=== PATIENT | male | born 1960 | race Caucasian/White ===

== ENCOUNTER → 2017-11-20 12:18 | Outpatient (CLI) | payer OTHER, SELFPAY ==
[2017-11-20 18:34] LABS: Pathologist Comment May follow
[2017-11-20 18:46] LABS: AUTO B FLUID DILUENT BKGD CT WBC <0.1 RBC <0.01 (W<.1,R<.01); Color / Synovial Fluid Yellow (Pale Yellow); Source / Synovial Fluid R KNEE; Source- Body Fluid SYNOVIAL; Viscosity / Synovial Fluid Sl. Viscous (HIGH)
[2017-11-20 18:47] LABS: Synovial Fld Mononuclear WBC # 0.156 10^3/ul; Synovial Fld Mononuclear WBC % 78.8 %; Synovial Fld Polynuclear WBC # 0.042 10^3/ul; Synovial Fld Polynuclear WBC % 21.2 %
[2017-11-20 18:48] LABS: Appearance /Synovial Fluid Clear (CLEAR)
[2017-11-20 19:04] LABS: RBC /Synovial Fluid 63 /mm3 (0)
[2017-11-20 19:24] LABS: Body Fluid QC Type(s) BF1Q,BF2Q
[2017-11-20 20:53] LABS: Lymph 34 %; Monocyte /Synovial Fluid 64 %; Neutrophil 2 % (0-25)
[2017-11-22 10:47] LABS: Pathologist Review Reviewed
== END ==
PROVIDERS: Family Provider Family Medicine; PCP Family Medicine; Visit Provider Orthopaedic Surgery
DX: S83.231D Complex tear of medial meniscus, current injury, right knee, subsequent encounter (principal); X58.XXXD Exposure to other specified factors, subsequent encounter; M25.461 Effusion, right knee
CPT/HCPCS: 87070; 87075; 87205; 89050; 89051; 89060

== ENCOUNTER 2018-03-09 14:11 | Emergency (ER) | payer OTHER, SELFPAY ==
[2018-03-09 14:11] VITALS: BP 153/77; PULSE 102; RESP 18; TEMP 36.6; O2SAT 99; BMI 44.7
--- NOTE | 2018-03-09 15:06 | ED.VISSUMM ---
- ER Visit Summary Date of Service: 03/09/18 Chief Complaint: Back pain History of Present Illness: The patient is a 57 M presenting with low back pain that has worsened over the past 2 weeks. Patient has had back problems since June. He has pain in his right low back radiating to his right leg. He has a tingling sensation in his right thigh. He was seen by his primary care physician 1 week ago. He states he manipulated his back and this did not improve his symptoms. He is taking Tylenol and Celebrex at home. He states he has tried tramadol in the past and this has not helped his pain. He denies weakness. Denies bowel or bladder incontinence. He is able to ambulate. Denies direct trauma. He states the pain worsened when he went back to work 2 weeks ago and does a lot of heavy lifting and repetitive motions. Physical Examination: Vitals are stable. Patient is afebrile. Alert no acute distress. HEENT exam is unremarkable. Neck is supple. Lungs are clear and equal bilaterally. Heart is regular rate and rhythm. Abdomen is soft nontender nondistended. Back: Right lumbar paraspinal muscle tenderness, no midline tenderness. Straight leg raise positive at 30? on the right Extremities are unremarkable. Skin is warm and dry. No focal neurologic deficit. Normal strength and sensation Remainder of exam is unremarkable. Emergency Department Course and Treatment: Patient is given Toradol, Norflex IM. He is given a prescription for Flexeril. He is advised to continue anti-inflammatories. Advised to follow-up with his primary care physician. Advised return to ED if worsening complaints. Disposition: Discharge home Impression: Acute on chronic back pain This note was generated with [employer] dictation software. It may contain incorrect words, spelling, and punctuation that were not noted in review of the chart prior to signing ED Disposition - Plan for ED Patient: Chief Complaint: Back Instructions: ED Sciatica Prescriptions: Cyclobenzaprine [Flexeril] 10 mg PO TID PRN #20 tablet PRN Reason: Muscle Spasm Referrals: Javier Fletcher DO [Primary Care Provider] -
--- NOTE | 2018-03-09 15:11 | ED.DCSUM_ITS ---
- ER Visit Summary Date of Service: 03/09/18 Chief Complaint: Back pain History of Present Illness: The patient is a 57 M presenting with low back pain that has worsened over the past 2 weeks. Patient has had back problems since June. He has pain in his right low back radiating to his right leg. He has a tingling sensation in his right thigh. He was seen by his primary care physician 1 week ago. He states he manipulated his back and this did not improve his symptoms. He is taking Tylenol and Celebrex at home. He states he has tried tramadol in the past and this has not helped his pain. He denies weakness. Denies bowel or bladder incontinence. He is able to ambulate. Denies direct trauma. He states the pain worsened when he went back to work 2 weeks ago and does a lot of heavy lifting and repetitive motions. Physical Examination: Vitals are stable. Patient is afebrile. Alert no acute distress. HEENT exam is unremarkable. Neck is supple. Lungs are clear and equal bilaterally. Heart is regular rate and rhythm. Abdomen is soft nontender nondistended. Back: Right lumbar paraspinal muscle tenderness, no midline tenderness. Straight leg raise positive at 30? on the right Extremities are unremarkable. Skin is warm and dry. No focal neurologic deficit. Normal strength and sensation Remainder of exam is unremarkable. Emergency Department Course and Treatment: Patient is given Toradol, Norflex IM. He is given a prescription for Flexeril. He is advised to continue anti- inflammatories. Advised to follow-up with his primary care physician. Advised return to ED if worsening complaints. Disposition: Discharge home Impression: Acute on chronic back pain This note was generated with [employer] dictation software. It may contain incorrect words, spelling, and punctuation that were not noted in review of the chart prior to signing ED Disposition - Plan for ED Patient: Chief Complaint: Back Instructions: ED Sciatica Prescriptions: Cyclobenzaprine [Flexeril] 10 mg PO TID PRN #20 tablet PRN Reason: Muscle Spasm Referrals: Javier Fletcher DO [Primary Care Provider] -
[2018-03-09] MEDS: Orphenadrine 60 MG/2 ML Ampul IM (15:14)
[2018-03-09] MEDS: Ketorolac 60 MG/2 ML Vial IM (15:14)
[2018-03-09 15:43] VITALS: BP 140/78; PULSE 76; RESP 18; O2SAT 98
== END 2018-03-09 15:45 | disposition home or self-care (01) ==
LOC: ED 15:20
PROVIDERS: Emergency Provider Emergency Medicine; Family Provider Family Medicine; PCP Family Medicine
DX: M54.9 Dorsalgia, unspecified (principal); G89.29 Other chronic pain; R20.2 Paresthesia of skin; K21.9 Gastro-esophageal reflux disease without esophagitis; I10 Essential (primary) hypertension; Z79.899 Other long term (current) drug therapy
CPT/HCPCS: 96372; 99282

== ENCOUNTER → 2019-05-08 | Outpatient (CLI) | payer OTHER, SELFPAY ==
[2019-05-08 09:56] LABS: Anion Gap 7 (5-15); BUN 27 mg/dL (7-18); BUN/Creat Ratio 27.4 RATIO (10-20); Calcium,Total 8.5 mg/dL (8.5-10.1); Chloride 110 mmol/L (98-107); Creatinine, Serum 0.99 mg/dL (0.70-1.30); EST Glomerular Filtration Rate 82 mL/min (>60); Est Glom Filt Rate - Afr Amer 99 mL/min (>60); Glucose 102 mg/dL (74-106); Potassium 4.2 mmol/L (3.5-5.1); Sodium Level 143 mmol/L (136-145)
== END | disposition home or self-care (01) ==
LOC: LAB 08:58
PROVIDERS: Family Provider Family Medicine; PCP Family Medicine; Referring Provider Family Medicine; Visit Provider Family Medicine
DX: I10 Essential (primary) hypertension (principal); R60.0 Localized edema
CPT/HCPCS: 36415; 80048

== ENCOUNTER → 2020-02-19 12:32 | Outpatient (CLI) | payer MEDICARE, SELFPAY ==
--- NOTE | 2020-02-19 12:44 | ECHOCS_ITS ---
Reason For Study: Exertional Dyspnea Procedure This was a 2D Doppler, Color Flow transthoracic echocardiogram. Technically difficult study due to patients body habitus. Contrast injection performed to enhance image quality. Exam performed in department. Left Ventricle Normal LV size. The estimated ejection fraction is 60 %. No evidence for diastolic dysfunction. No regional wall motion abnormalities noted. Right Ventricle Normal RV size. Normal systolic function. Atria Normal left atrium. Normal right atrium. No doppler evidence for ASD. Mitral Valve There is no mitral valve stenosis. No mitral valve insufficiency. Tricuspid Valve There is no tricuspid stenosis. Trivial tricuspid valve insufficiency. Pulmonary artery systolic pressure is 40 mmHg. Aortic Valve There is no aortic stenosis. No aortic valve insufficiency. Pulmonic Valve There is no pulmonic valvular stenosis. No pulmonic valve insufficiency. Great Vessels Normal aortic root. Pericardium/Pleural No pericardial effusion. Medication 22 gauge I.V. with prn adaptor inserted into right arm. Diluted definity 4ml given slow IV push to enhance endocardial definition. MMode/2D Measurements & Calculations LVIDd: 5.3 cm IVSd: 1.2 cm LA dimension: 4.1 cm LVIDs: 3.1 cm LVPWd: 1.2 cm FS: 40.5 % LAV(MOD-bp): 58.6 ml LA A4 area: 22.8 cm2 LAV(MOD-bp) Indexed: 21.0 ml/m2 LAV(MOD-sp2): 42.2 ml LAV(MOD-sp4): 66.6 ml Time Measurements MV dec time: 0.24 sec Doppler Measurements & Calculations MV E max kenneth: 99.4 cm/sec Lat Peak E' Kenneth: 11.4 cm/sec Med Peak E' Kenneth: 10.8 cm/sec MV A max kenneth: 77.5 cm/sec E/E' lat: 8.7 E/E' med: 9.2 MV E/A: 1.3 MV V2 max: 111.7 cm/sec MV P1/2t max kenneth: 114.6 cm/sec Ao V2 max: 163.1 cm/sec MV max P.0 mmHg MV P1/2t: 113.9 msec Ao max P.6 mmHg MV V2 mean: 61.2 cm/sec MV dec slope: 294.7 cm/sec2 MV mean P.7 mmHg MV V2 VTI: 38.3 cm MVA(P1/2t): 1.9 cm2 LV V1 max: 133.4 cm/sec PA V2 max: 123.3 cm/sec TR max kenneth: 300.0 cm/sec LV V1 max P.1 mmHg TR max P.0 mmHg Interpretation Summary The estimated ejection fraction is 60 %. No evidence for diastolic dysfunction. The study was technically difficult. Contrast injection was performed. Ordering Physician: Sixto Schulz Referring Physician: Sixto Schulz Performed By: Shakeel Jeffries RCS
== END ==
PROVIDERS: PCP Student in an Organized Health Care Education/Training Program; Referring Provider Student in an Organized Health Care Education/Training Program; Visit Provider Student in an Organized Health Care Education/Training Program
DX: R06.09 Other forms of dyspnea (principal)
CPT/HCPCS: 93306; Q9957; A4216; C8929

== ENCOUNTER → 2020-02-25 17:37 | Outpatient (CLI) | payer MEDICARE, SELFPAY ==
[2020-02-25 18:12] LABS: Amphetamine Urine VISTA NEGATIVE (<1000 ng/mL); Barbiturate Urine VISTA NEGATIVE (< 200 ng/mL); Benzodiazepine Urine VISTA NEGATIVE (< 200 ng/mL); Cocaine Urine VISTA NEGATIVE (< 300 ng/mL); Ecstacy Urine VISTA POSITIVE (< 500 ng/mL); Methadone Urine VISTA NEGATIVE (< 300 ng/mL); PCP Urine VISTA NEGATIVE (< 25 ng/mL); THC Urine VISTA NEGATIVE (< 50 ng/mL); Vista UDS pH Range 6
== END ==
PROVIDERS: PCP Student in an Organized Health Care Education/Training Program; Referring Provider Anesthesiology Pain Medicine; Visit Provider Anesthesiology Pain Medicine
DX: F11.20 Opioid dependence, uncomplicated (principal)
CPT/HCPCS: 80307

== ENCOUNTER 2020-02-27 02:35 | Observation (INO) | payer MEDICARE, SELFPAY ==
[2020-02-27] VITALS (12 sets, daily range): BP systolic 110–159; BP diastolic 67–105; PULSE 69–106; RESP 15–20; TEMP 36.4–37.7; O2SAT 93–99; BMI 50.8; BMI 50.0; BMI 50.1
--- NOTE | 2020-02-27 02:47 | EKG12_ITS ---
Test Reason : DYSRHYTHMIA Blood Pressure : / mmHG Vent. Rate : 096 BPM Atrial Rate : 096 BPM P-R Int : 168 ms QRS Dur : 076 ms QT Int : 346 ms P-R-T Axes : 058 -19 032 degrees QTc Int : 437 ms Normal sinus rhythm Low voltage QRS Inferior infarct , age undetermined Abnormal ECG Confirmed by FELTON MCCABE, SHARAD ([id number]), telegraph editor JEYSON BEGUM ([id number]) on 03/01/2020 9:22:14 AM Referred By: SILVINO Confirmed By:SHARAD YA MD
--- NOTE | 2020-02-27 02:49 | ED.DCSUM_ITS ---
History of Present Illness Chief Complaint: General Illness Detail of Chief Complaint: Chest pain, shortness of breath, chills Informant: Patient Onset: Today Current Severity: Moderate Maximum Severity: Moderate Narrative: Patient presents with chills and generalized weakness that started about 3 hours ago. He does report some shortness of breath. No significant cough. He also complains of sharp left-sided chest pain that he also feels around the left scapula. He states last evening he felt his normal self. He has not noted fever at home. - Past Medical History (1) GERD (gastroesophageal reflux disease) Status: Chronic (2) Hypertension Status: Chronic Past Medical History - Allergies and Home Meds Allergies/Adverse Reactions: Allergies esomeprazole magnesium [From Nexium] Adverse Reaction (Verified 02/27/20 02:49) Upset Stomach Primary Care Physician: Sixto Schulz DO [Primary Care Provider] - Prior records reviewed: Yes Smoking Status: Never smoker Review of Systems General: Reports: Chills. Denies: Fever Eyes: Denies: Visual changes - bilaterally ENT: Denies: Bilateral ear pain Cardiovascular: Reports: Chest pain Respiratory: Reports: Dyspnea. Denies: Cough, Sputum Gastrointestinal: Denies: Abdominal pain, Nausea, Vomiting, Diarrhea Musculoskeletal: Denies: Swelling, Extremity Pain Skin: Denies: Rash Neurological: Reports: Weakness Hematologic: Denies: Easy bruising, Easy bleeding Allergy: Denies: Uticaria Physical Exam Vital Signs/Narrative: Vital Signs Temp Pulse Resp BP Pulse Ox 02/27/20 02:38 100 F H 87 20 H 159/84 H 98 Inital Vital Signs reviewed: Yes General: Well nourished, Well developed Head: Normocephalic ENT: Moist mucous membranes Neck: Supple Cardiovascular: Regular rate, Regular rhythm Respiratory: No distress, CTA bilaterally Abdomen: Soft, Nontender, Hypoactive bowel sounds Extremities: Nontender Skin: Normal color Neurological: Alert, Oriented x3, - - No focal neurologic deficits. Psychological: Normal affect Diagnostic/Tx/Re-eval Impressions Chest X-Ray 02/27/20 03:52 IMPRESSION: Borderline cardiomegaly. Electronically Signed: Ivania Franco MD at 4:57 EDT , Service support , 02/27/20 03:52 Chest 1 View (Portable) [RAD] Stat 02/27/20 05:49 CTA Chest W/WO Contrast [CT] Stat No CTA demonstrated pulmonary embolism or arterial dissection. Laboratory Results 02/27/20 02/27/20 02/27/20 02:50 02:50 02:50 WBC 10.2 RBC 5.06 Hgb 14.3 Hct 45.7 MCV 90.3 MCH 28.3 MCHC 31.3 L RDW Std Deviation 47.6 H RDW Coeff of Nella 14.5 Plt Count 189 MPV 10.8 Immature Gran % (Auto) 1.300 H Neut % (Auto) 78.3 H Lymph % (Auto) 14.9 L [place] % (Auto) 3.7 Eos % (Auto) 1.2 Baso % (Auto) 0.6 Absolute Neuts (auto) 8.0 H Absolute Lymphs (auto) 1.52 Nucleated RBC % 0 Differential Comment SCANNED D-Dimer Quant (PE/DVT) Cancelled Sodium Cancelled Potassium Cancelled Chloride Cancelled Carbon Dioxide Cancelled Anion Gap Cancelled BUN Cancelled Creatinine Cancelled Estim Creat Clear Calc Cancelled Est GFR (MDRD) Af Amer Cancelled Est GFR (MDRD) Non-Af Cancelled BUN/Creatinine Ratio Cancelled Glucose Cancelled Calcium Cancelled Troponin I Cancelled Urine Color Urine Clarity Urine pH Ur Specific [place] Urine Protein Urine Glucose (UA) Urine Ketones Urine Occult Blood Urine Nitrite Urine Bilirubin Urine Urobilinogen Ur Leukocyte Esterase Urine RBC Urine WBC Ur Squamous Epith Cells Urine Bacteria Urine Mucus COVID-19 (RANGEL) 02/27/20 02/27/20 02/27/20 03:00 03:15 04:50 WBC RBC Hgb Hct MCV MCH MCHC RDW Std Deviation RDW Coeff of Nella Plt Count MPV Immature Gran % (Auto) Neut % (Auto) Lymph % (Auto) [place] % (Auto) Eos % (Auto) Baso % (Auto) Absolute Neuts (auto) Absolute Lymphs (auto) Nucleated RBC % Differential Comment D-Dimer Quant (PE/DVT) 0.92 H* Sodium Potassium Chloride Carbon Dioxide Anion Gap BUN Creatinine Estim Creat Clear Calc Est GFR (MDRD) Af Amer Est GFR (MDRD) Non-Af BUN/Creatinine Ratio Glucose Calcium Troponin I Urine Color Yellow Urine Clarity Sl. Cloudy Urine pH 6.0 Ur Specific [place] 1.020 Urine Protein 15 H Urine Glucose (UA) Normal Urine Ketones Negative Urine Occult Blood 10 H Urine Nitrite Negative Urine Bilirubin Negative Urine Urobilinogen 1 H Ur Leukocyte Esterase Negative Urine RBC 0-5 SEEN Urine WBC 0-5 SEEN Ur Squamous Epith Cells 0 SEEN Urine Bacteria 0 SEEN Urine Mucus 0 SEEN COVID-19 (RANGEL) Not Detected 02/27/20 04:50 WBC RBC Hgb Hct MCV MCH MCHC RDW Std Deviation RDW Coeff of Nella Plt Count MPV Immature Gran % (Auto) Neut % (Auto) Lymph % (Auto) [place] % (Auto) Eos % (Auto) Baso % (Auto) Absolute Neuts (auto) Absolute Lymphs (auto) Nucleated RBC % Differential Comment D-Dimer Quant (PE/DVT) Sodium 130 L Potassium 4.6 Chloride 103 Carbon Dioxide 19.0 L Anion Gap 8 BUN 32 H Creatinine 1.07 Estim Creat Clear Calc 79.57 Est GFR (MDRD) Af Amer 90 Est GFR (MDRD) Non-Af 75 BUN/Creatinine Ratio 29.9 H Glucose 104 Calcium 8.8 Troponin I 0.163 H Urine Color Urine Clarity Urine pH Ur Specific [place] Urine Protein Urine Glucose (UA) Urine Ketones Urine Occult Blood Urine Nitrite Urine Bilirubin Urine Urobilinogen Ur Leukocyte Esterase Urine RBC Urine WBC Ur Squamous Epith Cells Urine Bacteria Urine Mucus COVID-19 (RANGEL) - EKG Initial EKG Interpretation: Sinus Rhythm - Sinus 86 with no acute ischemia. Follow-up EKG Interpretation: Sinus Rhythm - Sinus at 96 with no acute ischemia. - Medical Decision Making Patient was given Tylenol for fever on arrival. Laboratory evaluation is undertaken. Patient's d-dimer is elevated and CTA of the chest is obtained which shows no evidence of pulmonary embolism or dissection. There is no evidence of infiltrate. Patient's troponin is elevated. He is given aspirin p.o. He is discussed with hospitalist will be admitted to the floor for further work-up and evaluation. ED Disposition - Plan for ED Patient: Disposition: Acute Care Hospital [facility] Diagnosis: Chest pain, Elevated troponin Referrals: Sixto Schulz DO [Primary Care Provider] -
[2020-02-27 02:59] LABS: Absolute Lymphocyte Count 1.52 X10^3/uL (0.83-4.51); Basophil# 0.06 X10^3/uL; Basophil% 0.6 % (0-1); Eosinophil# 0.12 X10^3/uL; Eosinophils% 1.2 % (0-5); Hematocrit 45.7 % (40-54); Hemoglobin 14.3 g/dL (13.0-16.5); Lymphocyte # 1.52 X10^3/ul (4.0); Lymphocyte % 14.9 % (19-41); Mean Corp Hgb Conc 31.3 g/dL (32-36); Mean Corpuscular Hgb 28.3 pg (27.0-32.0); Mean Corpuscular Volume 90.3 fL (80-94); Mean Platelet Vol. 10.8 fl (6.2-12.0); Monocyte# 0.38 X10^3/uL; Monocyte% 3.7 % (0-10); NRBC Flagged by Analyzer 0 % (0-5); Neutrophil # 7.99 X10^3/uL (2.7-7.7); Neutrophil % 78.3 % (47-70); POSITIVE COUNT YES; Platelet Count 189 K/mm3 (150-450); RBC Distribution Width CV 14.5 % (11.6-14.6); RBC Distribution Width SD 47.6 fl (35.1-43.9); Red Blood Count 5.06 M/mm3 (4.6-6.2); White Blood Count 10.2 K/mm3 (4.4-11.0)
[2020-02-27 03:18] LABS: Differential Indicated SCAN CRITERIA MET
[2020-02-27 03:26] LABS: Bacteria 0 SEEN /hpf (None Seen); Mucous, Urine 0 SEEN /hpf (<or=2+); Squamous Epithelial Cells - UA 0 SEEN /hpf (0-5)
[2020-02-27 03:28] LABS: Color, Urine Yellow (Yellow); Glucose, Dipstick Normal (Normal); Ketone-Dipstick Negative (Negative); Leukocyte Esterase-Dipstick Negative /ul (Negative); Nitrite-Dipstick Negative (Negative); Occult Blood-Urine 10 /ul (Negative); Protein-Dipstick 15 mg/dl (Negative); Urine Bilirubin Dipstick Negative (Negative); Urine Clarity Sl. Cloudy (Clear); Urine Urobilinogen 1 mg/dl (Normal)
[2020-02-27] MEDS: 0.9% Normal Saline 1,000 ML 15 ML IV (03:39)
[2020-02-27 03:40] LABS: Red Blood Cells-Urine 0-5 SEEN /hpf (0-5); White Blood Cells 0-5 SEEN /hpf (0-5)
[2020-02-27] MEDS: Acetaminophen 500 MG Tablet 1000 MG PO (03:40)
[2020-02-27 03:45] LABS: Differential Comment SCANNED
--- NOTE | 2020-02-27 03:52 | RAD_ITS ---
STUDY: X-RAY CHEST REASON FOR EXAM: Male, 59 years old patient with chills, chest discomfort and shortness of breath. TECHNIQUE: Single AP portable view of the chest. COMPARISON: Prior comparison studies are not available for review at this time. FINDINGS: Cardiac monitoring leads are present. Patient has had previous cervical spine surgery. The lungs are clear and expanded. There is no demonstrated pleural abnormality. There is borderline cardiomegaly. Normal mediastinum and gifty. There is prominence of the pulmonary hilar arteries without peripheral pulmonary vascular congestion. Normal visualized aortic arch and descending thoracic aorta. Normal visualized thoracic spine. Normal visualized ribs, clavicles, and shoulders. There is no demonstrated abnormality of the visualized soft tissue structures of the upper abdomen. RAD/Chest 1 View (Portable) IMPRESSION: Borderline cardiomegaly. Electronically Signed: Ivania Franco MD at 4:57 EDT , Service support ,
--- NOTE | 2020-02-27 05:11 | ED.RN ---
MULTIPLE ATTEMPTS TO GET LACTIC ACID BY NURSES AND LAB. DR NOREEN TONG.
[2020-02-27 05:44] LABS: D-Dimer Quantitative (DVT/PE) 0.92 FEU/ug/m (0.27-0.49)
[2020-02-27 05:46] LABS: Anion Gap 8 (5-15); BUN 32 mg/dL (7-18); BUN/Creat Ratio 29.9 RATIO (10-20); Calcium,Total 8.8 mg/dL (8.5-10.1); Chloride 103 mmol/L (98-107); Creatinine, Serum 1.07 mg/dL (0.70-1.30); EST Glomerular Filtration Rate 75 mL/min (>60); Est Glom Filt Rate - Afr Amer 90 mL/min (>60); Estimated Creatinine Clearance 79.57 ml/min; Glucose 104 mg/dL (74-106); Potassium 4.6 mmol/L (3.5-5.1); Sodium Level 130 mmol/L (136-145)
--- NOTE | 2020-02-27 05:49 | CT_ITS ---
STUDY: CTA CHEST REASON FOR EXAM: Male, 59 years old patient with chest pain with elevated d-dimer. COVID negative RADIATION DOSAGE (If Supplied By Facility): CTDIvol = ( 18.03 ) mGy, DLP = ( 770.75 ) mGycm TECHNIQUE: The examination was performed with the intravenous administration of 100 ml of Isovue 370. Post-processing of the angiographic images was performed, with multiplanar reformation and 3D reconstruction. Individualized dose optimization techniques were used for this CT. COMPARISON: Prior comparison studies are not available for review at this time. FINDINGS: Normal enhancement of the main pulmonary artery and right and left pulmonary arteries. Normal enhancement of the bilateral peripheral pulmonary arteries. There is no demonstrated pulmonary embolism. Normal thoracic aorta and visualized great vessels. There is no demonstrated aortic dissection. Normal heart and pericardium. Normal mediastinum. Normal hilar regions. Normal visualized trachea and bronchi. The lungs are well expanded. Normal pulmonary parenchyma. Normal pleura. Normal chest wall structures. Normal osseous structures. There is small hepatic cyst measuring less than a centimeter in size. CT/CTA Chest W/WO Contrast IMPRESSION: No CTA demonstrated pulmonary embolism or arterial dissection. Electronically Signed: Ivania Franco MD at 7:27 EDT , Service support ,
[2020-02-27] MEDS: Aspirin 81 MG TAB.CHEW 324 MG PO (06:00)
--- NOTE | 2020-02-27 06:43 | EKG12_ITS ---
Test Reason : CP Blood Pressure : / mmHG Vent. Rate : 086 BPM Atrial Rate : 086 BPM P-R Int : 164 ms QRS Dur : 080 ms QT Int : 378 ms P-R-T Axes : 057 -21 052 degrees QTc Int : 452 ms Normal sinus rhythm Normal ECG Confirmed by FELTON MCCABE, SHARAD ([id number]), editorial writer JEYSON BEGUM ([id number]) on 03/01/2020 9:22:29 AM Referred By: SILVINO Confirmed By:SHARAD YA MD
--- NOTE | 2020-02-27 07:23 | NURSING ---
DR VAZQUEZ FOR DR SORTO
--- NOTE | 2020-02-27 07:28 | NURSING ---
PCU OBS TAYLOR CP, ELEVATED TROP
[2020-02-27] MEDS: Enoxaparin 40 MG/0.4 ML Syringe SC (10:51)
--- NOTE | 2020-02-27 14:23 | PCM.HP.STD ---
<Odalis Dean - Last Filed: 02/27/20 14:42> Problem List (1) GERD (gastroesophageal reflux disease) Status: Chronic (2) Hypertension Status: Chronic (3) Chest pain Status: Acute (4) Elevated troponin Status: Acute History of Present Illness Date of Admission: 02/27/20 Chief Complaint: Chest pain, dyspnea on exertion. The patient is a 59 year old M who presents to the emergency room due to chest pain and ongoing dyspnea on exertion. Patient reports he had a similar episode about a month ago and was seen at [facility] where he completed a stress test which he reports was normal. Patient states over the past few months he has had shortness of breath on exertion which resolves with rest. Last night around 1 AM he was awoken from his sleep due to chest pain and pressure with associated shortness of breath. Denies nausea, diaphoresis. He has a past medical history of hypertension, chronic back pain, GERD, KETAN, morbid obesity, major depressive disorder. Past Medical History Past Medical History (Chronic Problems): Chronic Problems GERD (gastroesophageal reflux disease) (Chronic) Hypertension (Chronic) Allergies esomeprazole magnesium [From Nexium] Adverse Reaction (Verified 02/27/20 02:49) Upset Stomach Home Medications: Ambulatory Orders Medication Instructions Recorded Escitalopram Oxalate [Lexapro] 20 mg PO DAILY 08/19/15 Famotidine [Pepcid] 40 mg PO BID PRN 08/19/15 Lisinopril/Hydrochlorothiazide 1 tablet PO DAILY 08/19/15 [Zestoretic 20/12.5 Tablet] traZODone [Desyrel] 50 mg PO DAILY 08/19/15 Celecoxib 200 mg PO DAILY 05/21/17 Fexofenadine HCl 180 mg PO DAILY 05/21/17 Hydrocodone Bitart/Apap 5-325 1 - 2 tablet PO Q4H PRN PRN #12 05/21/17 [[place] 5/325] tablet Lansoprazole [Prevacid] 30 mg PO DAILY 05/21/17 Meclizine HCl [Antivert] 25 mg PO 4X/DAY PRN PRN 05/21/17 Mometasone Furoate [Nasonex] 1 spray NASAL DAILY PRN 05/21/17 buPROPion XL [Wellbutrin Xl] 150 mg PO DAILY 05/21/17 cycloBENZAPRine HCl [Flexeril] 10 mg PO TID PRN #20 tablet 03/09/18 Aspirin [Aspir 81] 81 mg PO DAILY 02/27/20 Metoprolol Tartrate 25 mg PO BID 02/27/20 Surgical History: - - Appendectomy, tonsillectomy, left knee surgery Lives: Alone Smoking Status: Never smoker Tobacco Use: Chew Alcohol: None Drugs: None - *Family History Maternal History Items: Heart Disease Paternal History Items: Diabetes, Hypertension, - - Cancer Review of Systems Constitutional: Denies: Chills, Fever, Weight Change HEENT: Denies: Head Aches, Sinus Congestion, Sinus Drainage Cardiovascular: Reports: Chest Pain, Chest Pressure. Denies: Edema, Light Headedness, Palpitations, Syncope Respiratory: Reports: Shortness of breath upon exertion. Denies: Cough, Sputum production, Wheezing Gastrointestinal: Denies: Abdominal Pain, Nausea, Vomiting Genitourinary: Denies: Dysuria Musculoskeletal: Denies: Joint Pain, Joint Tenderness Skin: Denies: Rash, Wounds Neurological: Denies: Numbness, Tingling, Focal weakness Psychiatric: Denies: Anxiety, Depression, Homicidal Ideations, Suicidal Ideations Hematologic/ Lymphatic: Denies: Easy Bruising, Easy Bleeding VTE Information - Inpt Only VTE Present on Admission: No VTE Mechan Device Prophylaxis: None VTE Pharm Prophylaxis ordered?: Yes Patient Problems: Active and Suspected Problems Chest pain (Acute) Elevated troponin (Acute) Angina at rest (Acute) - Physical Exam Vitals/I&O's: Vital Signs Temp Pulse Resp BP Pulse Ox 98 F 98 16 120/67 95 02/27/20 08:45 02/27/20 08:56 02/27/20 08:45 02/27/20 08:45 02/27/20 08:45 Oxygen Delivery Method Room Air Weight: 369 lb 1.6 oz Body Mass Index (BMI) 50.0 Intake and Output for Last 24 Hours 02/25/20 02/26/20 02/27/20 23:59 23:59 23:59 Intake Total 70.25 / 70.25 Balance 70.25 / 70.25 General: Alert, Oriented x3, Cooperative HEENT: Atraumatic, PERRLA, EOMI, Normocephalic Neck: Supple, No JVD, Negative Carotid Bruits Lungs: Clear to auscultation, Normal air movement Cardiovascular: Regular rate, No murmurs Abdomen: Bowel Sounds Present, Soft, Non Tender, Non-Distended, Obese Extremities: No clubbing, No cyanosis, No edema, Capillary Refill Less than 3 Seconds Skin: No rashes, No breakdown Musculoskeletal: No Tenderness to Palpation of Joints or Extremities Neurological: Cranial nerves II-XII grossly intact, Neuro grossly intact Psych/Mental Status: Normal Affect, Appropriate Laboratory Results 02/27/20 02:50: WBC 10.2, RBC 5.06, Hgb 14.3, Hct 45.7, MCV 90.3, MCH 28.3, MCHC 31.3 L, RDW Std Deviation 47.6 H, RDW Coeff of [place]ella 14.5, Plt Count 189, MPV 10.8, Immature Gran % (Auto) 1.300 H, Neut % (Auto) 78.3 H, Lymph % (Auto) 14.9 L, [place] % (Auto) 3.7, Eos % (Auto) 1.2, Baso % (Auto) 0.6, Absolute Neuts (auto) 8.0 H, Absolute Lymphs (auto) 1.52, Nucleated RBC % 0, Differential Comment SCANNED 02/27/20 02:50: D-Dimer Quant (PE/DVT) Cancelled 02/27/20 02:50: Sodium Cancelled, Potassium Cancelled, Chloride Cancelled, Carbon Dioxide Cancelled, Anion Gap Cancelled, BUN Cancelled, Creatinine Cancelled, Estim Creat Clear Calc Cancelled, Est GFR (MDRD) Af Amer Cancelled, Est GFR (MDRD) Non-Af Cancelled, BUN/Creatinine Ratio Cancelled, Glucose Cancelled, Calcium Cancelled, Troponin I Cancelled 02/27/20 03:00: Urine Color Yellow, Urine Clarity Sl. Cloudy, Urine pH 6.0, Ur Specific [place] 1.020, Urine Protein 15 H, Urine Glucose (UA) Normal, Urine Ketones Negative, Urine Occult Blood 10 H, Urine Nitrite Negative, Urine Bilirubin Negative, Urine Urobilinogen 1 H, Ur Leukocyte Esterase Negative, Urine RBC 0-5 SEEN, Urine WBC 0-5 SEEN, Ur Squamous Epith Cells 0 SEEN, Urine Bacteria 0 SEEN, Urine Mucus 0 SEEN 02/27/20 03:15: COVID-19 (RANGEL) Not Detected 02/27/20 04:50: D-Dimer Quant (PE/DVT) 0.92 H* 02/27/20 04:50: Sodium 130 L, Potassium 4.6, Chloride 103, Carbon Dioxide 19.0 L, Anion Gap 8, BUN 32 H, Creatinine 1.07, Estim Creat Clear Calc 79.57, Est GFR (MDRD) Af Amer 90, Est GFR (MDRD) Non-Af 75, BUN/Creatinine Ratio 29.9 H, Glucose 104, Calcium 8.8, Troponin I 0.163 H 02/27/20 08:36: Troponin I < 0.015 02/27/20 11:08: Troponin I < 0.015 Current Medications Acetaminophen (Tylenol) 650 mg PO Q6H PRN PRN PRN Reason: Pain Score 1-10/Temp > 100.7 F Enoxaparin Sodium (Lovenox) 40 mg SC DAILY KYLE Last Admin: 02/27/20 10:51 Dose: 40 mg Documented by: Sodium Chloride () 250 mls @ 15 mls/hr IV .[id number] PRN PRN Reason: Saline Flush Sodium Chloride () 250 mls @ 15 mls/hr IV .[id number] PRN PRN Reason: Additional IVPB Infusion Nitroglycerin (Nitrostat) 0.4 mg SUBLINGUAL Q5M PRN PRN Reason: CARDIAC/CHEST PAIN Sodium Chloride () 10 - 40 ml IV UD PRN PRN Reason: SALINE FLUSH Assessment/Plan All Active Problems Chest pain (Acute) Elevated troponin (Acute) Angina at rest (Acute) 1. Chest pain, dyspnea on exertion-initial troponin 0.163. Repeat troponin 0.015. Chest x-ray without acute ischemia. Per [facility] records, stress test completed 01/18/2020 was negative for inducible ischemia. Echocardiogram 02/21/2020 demonstrated an EF of 60%, no evidence of diastolic dysfunction. Chest CTA without PE or arterial dissection. Repeat troponin. Continue aspirin. Check fasting lipid panel. Check hemoglobin A1c. Cardiology consulted given ongoing symptoms and recent normal stress test with abnormal troponin. COVID negative. 2. Hypertension-stable, continue lisinopril/HCTZ, metoprolol regimen. 3. Chronic back pain-on disability due to chronic pain. Continue home PRN regimen. 4. GERD-continue home Prevacid, Pepcid regimen. 5. KETAN-continue home Pap regimen. 6. Morbid obesity-encouraged diet and lifestyle modifications. Nutrition consult. 7. Major depressive disorder-continue home Lexapro, Wellbutrin regimen. DVT prophylaxis- Lovenox sc This patient was seen by MICAHEL Weaver under the supervision of Dr. Chappell. <Santhosh Chappell F - Last Filed: 02/27/20 17:09> History of Present Illness The patient is a 59 year old M [] Past Medical History Allergies esomeprazole magnesium [From Nexium] Adverse Reaction (Verified 02/27/20 02:49) Upset Stomach - Physical Exam Vitals/I&O's: Vital Signs Temp Pulse Resp BP Pulse Ox 97.5 F L 69 16 122/78 H 97 02/27/20 14:40 02/27/20 14:40 02/27/20 14:40 02/27/20 14:40 02/27/20 14:40 Oxygen Delivery Method Room Air Weight: 369 lb 1.6 oz Body Mass Index (BMI) 50.0 Intake and Output for Last 24 Hours 02/25/20 02/26/20 02/27/20 23:59 23:59 23:59 Intake Total 70.25 / 70.25 Balance 70.25 / 70.25 Laboratory Results 02/27/20 02:50: WBC 10.2, RBC 5.06, Hgb 14.3, Hct 45.7, MCV 90.3, MCH 28.3, MCHC 31.3 L, RDW Std Deviation 47.6 H, RDW Coeff of [place] 14.5, Plt Count 189, MPV 10.8, Immature Gran % (Auto) 1.300 H, Neut % (Auto) 78.3 H, Lymph % (Auto) 14.9 L, [place] % (Auto) 3.7, Eos % (Auto) 1.2, Baso % (Auto) 0.6, Absolute Neuts (auto) 8.0 H, Absolute Lymphs (auto) 1.52, Nucleated RBC % 0, Differential Comment SCANNED 02/27/20 02:50: D-Dimer Quant (PE/DVT) Cancelled 02/27/20 02:50: Sodium Cancelled, Potassium Cancelled, Chloride Cancelled, Carbon Dioxide Cancelled, Anion Gap Cancelled, BUN Cancelled, Creatinine Cancelled, Estim Creat Clear Calc Cancelled, Est GFR (MDRD) Af Amer Cancelled, Est GFR (MDRD) Non-Af Cancelled, BUN/Creatinine Ratio Cancelled, Glucose Cancelled, Calcium Cancelled, Troponin I Cancelled 02/27/20 02:50: Hemoglobin A1c Pending 02/27/20 03:00: Urine Color Yellow, Urine Clarity Sl. Cloudy, Urine pH 6.0, Ur Specific [place] 1.020, Urine Protein 15 H, Urine Glucose (UA) Normal, Urine Ketones Negative, Urine Occult Blood 10 H, Urine Nitrite Negative, Urine Bilirubin Negative, Urine Urobilinogen 1 H, Ur Leukocyte Esterase Negative, Urine RBC 0-5 SEEN, Urine WBC 0-5 SEEN, Ur Squamous Epith Cells 0 SEEN, Urine Bacteria 0 SEEN, Urine Mucus 0 SEEN 02/27/20 03:15: COVID-19 (RANGEL) Not Detected 02/27/20 04:50: D-Dimer Quant (PE/DVT) 0.92 H* 02/27/20 04:50: Sodium 130 L, Potassium 4.6, Chloride 103, Carbon Dioxide 19.0 L, Anion Gap 8, BUN 32 H, Creatinine 1.07, Estim Creat Clear Calc 79.57, Est GFR (MDRD) Af Amer 90, Est GFR (MDRD) Non-Af 75, BUN/Creatinine Ratio 29.9 H, Glucose 104, Calcium 8.8, Troponin I 0.163 H 02/27/20 08:36: Troponin I < 0.015 02/27/20 11:08: Troponin I < 0.015 Current Medications Hydrocodone Bitart/Acetaminophen ([place] 5mg-325mg) 1 - 2 tablet PO Q4H PRN PRN PRN Reason: P Aspir[facility] Bupropion HCl (Wellbutrin Xl) 150 mg PO DAILY [facility] Cyclobenzaprine HCl (Flexeril) 10 mg PO TID PRN PRN Reason: MUSCLE SPASMS Enoxaparin Sodium (Lovenox) 40 mg SC DAILY [facility] Last Admin: 02/27/20 10:51 Dose: 40 mg Documented by: Escitalopram Oxalate (Lexapro) 20 mg PO DAILY [facility] Sodium Chloride () 250 mls @ 15 mls/hr IV .[id number] PRN PRN Reason: Saline Flush Sodium Chloride () 250 mls @ 15 mls/hr IV .[id number] PRN PRN Reason: Additional IVPB Infusion Loratadine (Claritin) 10 mg PO DAILY KYLE Metoprolol Tartrate (Lopressor (Beta Pako)) 25 mg PO BID KYLE Nitroglycerin (Nitrostat) 0.4 mg SUBLINGUAL Q5M PRN PRN Reason: CARDIAC/CHEST PAIN Non-Formulary Medication (Famotidine [Pepcid]) 40 mg PO BID PRN PRN Reason: HEARTBURN Non-Formulary Medication (Lansoprazole) 30 mg PO DAILY KYLE Sodium Chloride () 10 - 40 ml IV UD PRN PRN Reason: SALINE FLUSH Trazodone HCl (Desyrel) 50 mg PO DAILY [facility] Addendum: Dr. Chappell I personally examined the patient and reviewed the chart. I agree with the above. 59-year-old male with depression, anxiety presents with chest pain. He said that he had a similar chest pain about a month ago and was seen at [facility] with a normal stress test. He presents again with chest pain that woke him up from sleep at around 1 AM. He presented to the hospital initial troponin was positive the 0.163 however subsequent troponins have normalized to .015. He also had an elevated d-dimer on admission, CTA was negative. At some point he had a slight temperature and was complaining of myalgias and shortness of breath and a COVID test was performed which was also negative. Given the continued chest pain and the elevation in his troponin which did normalize, will consult cardiology for possible cardiac cath given his elevated BMI of 50.1 and his persistent chest pain. OBSV E&M: [id number] Initial observation care L3
[2020-02-27] MEDS: Acetaminophen 325 MG Tablet 650 MG PO (14:33)
[2020-02-27 15:40] LABS: Hemoglobin A1c 5.6 % (3.8-5.6)
--- NOTE | 2020-02-27 15:44 | CON.PCM_ITS ---
Problem List (1) Angina at rest Status: Acute Reason for Consult Date of Consultation: 02/27/20 Reason for Consultation: 3 hours of chest pain History of Present Illness: The patient is a 59 year old M [] Was admitted with 3 hours of rest substernal heaviness associated with shortness of breath. First sets of enzymes was mildly elevated but then the next 2 were trending down. EKG showed sinus rhythm with minimal ST segment depression seen in V5 V6. There may be possibility of cold inferior wall myocardial infarct. His cardiac history dates back to 4 months ago, at that time patient started having exertional angina relieved by resting. A month ago he was admitted in another hospital for investigation of angina. After discharge, patient had Lexiscan nuclear stress test and was told to be normal. Patient is known to have hypertension and morbid obesity. Before 4 months ago patient was able to do most of the stuff he wants to do with no difficulty. He is a non-smoker and nondrinker. He is not a diabetic and denies any history of hyperlipidemia. Past Medical History Allergies/Adverse Reactions: Allergies esomeprazole magnesium [From Nexium] Adverse Reaction (Verified 02/27/20 02:49) Upset Stomach Home Medications: Ambulatory Orders Medication Instructions Recorded Escitalopram Oxalate [Lexapro] 20 mg PO DAILY 08/19/15 Famotidine [Pepcid] 40 mg PO BID PRN 08/19/15 Lisinopril/Hydrochlorothiazide 1 tablet PO DAILY 08/19/15 [Zestoretic 28/08.5 Tablet] traZODone [Desyrel] 50 mg PO DAILY 08/19/15 Celecoxib 200 mg PO DAILY 05/21/17 Fexofenadine HCl 180 mg PO DAILY 05/21/17 Hydrocodone Bitart/Apap 5-325 1 - 2 tablet PO Q4H PRN PRN #12 05/21/17 [[place] 5/325] tablet Lansoprazole [Prevacid] 30 mg PO DAILY 05/21/17 Meclizine HCl [Antivert] 25 mg PO 4X/DAY PRN PRN 05/21/17 Mometasone Furoate [Nasonex] 1 spray NASAL DAILY PRN 05/21/17 buPROPion XL [Wellbutrin Xl] 150 mg PO DAILY 05/21/17 cycloBENZAPRine HCl [Flexeril] 10 mg PO TID PRN #20 tablet 03/09/18 Aspirin [Aspir 81] 81 mg PO DAILY 02/27/20 Metoprolol Tartrate 25 mg PO BID 02/27/20 Past Medical History (Chronic Problems): Chronic Problems GERD (gastroesophageal reflux disease) (Chronic) Hypertension (Chronic) Surgical History: - - Appendectomy, tonsillectomy, left knee surgery - *Family History Maternal History Items: Heart Disease Paternal History Items: Diabetes, Hypertension, - - Cancer Lives: Alone Smoking Status: Never smoker Tobacco Use: Chew Alcohol: None Drugs: None Review of Systems - Review of Systems General: Reports: Fatigue. Denies: Fever, Night Sweats Cardiovascular: Reports: Chest Discomfort, Shortness of Breath Gastrointestinal: Denies: Hematemesis, Hematochezia, Melena Genitourinary: Denies: Dysuria, Hematuria Objective: Vital Signs Temp Pulse Resp BP Pulse Ox 97.5 F L 70 16 122/78 H 97 02/27/20 14:40 02/27/20 15:26 02/27/20 14:40 02/27/20 14:40 02/27/20 14:40 Oxygen Delivery Method Room Air Weight: 369 lb 1.6 oz Body Mass Index (BMI) 50.0 Intake and Output for Last 24 Hours 02/25/20 02/26/20 02/27/20 23:59 23:59 23:59 Intake Total 70.25 / 70.25 Balance 70.25 / 70.25 General: Healthy Appearing, No Acute Distress HEENT: Atraumatic Neck: Supple Lungs: Clear to auscultation Cardiovascular: Regular Rhythm, Normal S1, Normal S2, No Murmurs Vascular: No Carotid Bruits, Decreased R Femoral Pulse - Due to obesity, Decreased L Femoral Pulse - Due to obesity Abdomen: Obese Extremities: Bilateral Edema +1 Neurological: No Focal Motor or Sensory Deficit 02/27/20 02:50: WBC 10.2, RBC 5.06, Hgb 14.3, Hct 45.7, MCV 90.3, MCH 28.3, MCHC 31.3 L, Plt Count 189, MPV 10.8, Immature Gran % (Auto) 1.300 H, Neut % (Auto) 78.3 H, Lymph % (Auto) 14.9 L, [place] % (Auto) 3.7, Eos % (Auto) 1.2, Baso % (Auto) 0.6, Absolute Neuts (auto) 8.0 H, Nucleated RBC % 0 02/27/20 02:50: D-Dimer Quant (PE/DVT) Cancelled 02/27/20 02:50: Sodium Cancelled, Potassium Cancelled, Chloride Cancelled, Carbon Dioxide Cancelled, Anion Gap Cancelled, BUN Cancelled, Creatinine Cancelled, Est GFR (MDRD) Af Amer Cancelled, Est GFR (MDRD) Non-Af Cancelled, BUN/Creatinine Ratio Cancelled, Glucose Cancelled, Calcium Cancelled, Troponin I Cancelled 02/27/20 02:50: Hemoglobin A1c 5.6 02/27/20 03:00: Urine Color Yellow, Urine Clarity Sl. Cloudy, Urine pH 6.0, Ur Specific [place] 1.020, Urine Protein 15 H, Urine Glucose (UA) Normal, Urine Ketones Negative, Urine Occult Blood 10 H, Urine Nitrite Negative, Urine Bilirubin Negative, Urine Urobilinogen 1 H, Ur Leukocyte Esterase Negative, Urine RBC 0-5 SEEN, Urine WBC 0-5 SEEN 02/27/20 04:50: D-Dimer Quant (PE/DVT) 0.92 H* 02/27/20 04:50: Sodium 130 L, Potassium 4.6, Chloride 103, Carbon Dioxide 19.0 L , Anion Gap 8, BUN 32 H, Creatinine 1.07, Est GFR (MDRD) Af Amer 90, Est GFR (MDRD) Non-Af 75, BUN/Creatinine Ratio 29.9 H, Glucose 104, Calcium 8.8, Troponin I 0.163 H 02/27/20 08:36: Troponin I < 0.015 02/27/20 11:08: Troponin I < 0.015 Rhythm: EKG: Sinus rhythm with possible old inferior wall myocardial infarct, minimal ST segment depression seen in V5 to V6. First sets of enzymes was mildly elevated however subsequent serial enzymes were trending down ECHO: Stress Test: Cardiac Cath: PCI: CT Surgery: Holter monitor: EPS: PPM: CXR: Chest CT Scan: Assessment/Plan #1 functional class IV angina. Symptom has been building up for 4 months with functional class III angina at that time. Nuclear stress test was performed recently and was told to be normal. In view of the typical symptoms I would recommend proceeding with cardiac catheterization. Patient has agree with the risk and benefit of the procedure. The best approach because of the obesity would be using right radial approach. Aspirin and Lovenox will be given. Beta-jovan and Nitropaste will be continued. Echocardiogram will be ordered #2 obesity and hypertension
[2020-02-27] MEDS: Enoxaparin 100 MG/ML Syringe SC (17:06)
[2020-02-27] MEDS: Nitroglycerin Oint 1 INCH PACKET 0.5 INCH TRANSDERM. (21:03)
[2020-02-27] MEDS: Metoprolol Tartrate 25 MG Tablet PO (21:03)
[2020-02-27] MEDS: HYDROcodone Bitartrate/Apap 5/325 Tablet PO (21:04)
[2020-02-28] VITALS (13 sets, daily range): BP systolic 110–163; BP diastolic 60–82; PULSE 67–80; RESP 12–18; TEMP 36.3–37.2; O2SAT 95–99
--- NOTE | 2020-02-28 01:11 | NURSING ---
Verbal report given to Westley Brower RN. She will resume care of pt at this time.
[2020-02-28] MEDS: Nitroglycerin Oint 1 INCH PACKET 0.5 INCH TRANSDERM. ×3 (05:18→21:10)
[2020-02-28] MEDS: Enoxaparin 100 MG/ML Syringe SC ×2 (05:19→16:25)
[2020-02-28] MEDS: HYDROcodone Bitartrate/Apap 5/325 Tablet PO ×3 (05:19→21:10)
[2020-02-28] MEDS: 0.9% Saline Lock 10 ML Syringe IV ×2 (05:24→10:34)
[2020-02-28 06:08] LABS: Absolute Lymphocyte Count 1.06 X10^3/uL (0.83-4.51); Absolute Neutrophil Count 3.9 X10^3/uL (2.0-7.7); Basophil# 0.06 X10^3/uL; Eosinophil# 0.06 X10^3/uL; Hematocrit 43.2 % (40-54); Hemoglobin 13.6 g/dL (13.0-16.5); Lymphocyte # 1.06 X10^3/ul (4.0); Lymphocyte % 18.3 % (19-41); Mean Corp Hgb Conc 31.5 g/dL (32-36); Mean Corpuscular Hgb 28.5 pg (27.0-32.0); Mean Corpuscular Volume 90.6 fL (80-94); Mean Platelet Vol. 10.4 fl (6.2-12.0); Monocyte# 0.62 X10^3/uL; Monocyte% 10.7 % (0-10); NRBC Flagged by Analyzer 0 % (0-5); Neutrophil # 3.88 X10^3/uL (2.7-7.7); Neutrophil % 67.3 % (47-70); Platelet Count 184 K/mm3 (150-450); RBC Distribution Width CV 14.2 % (11.6-14.6); RBC Distribution Width SD 47.7 fl (35.1-43.9); Red Blood Count 4.77 M/mm3 (4.6-6.2); White Blood Count 5.8 K/mm3 (4.4-11.0)
--- NOTE | 2020-02-28 06:35 | NURSING ---
Dr. Mccormack notified of what appears to be torsades. Rhythm returned to NSR at this time. Pt c/o being in a cold sweat but also mentioned that he has been that way on and off through the night. Also he reports shaking his leg occasionally. V lead was off when tele recorded this rhythm. No mag has been drawn on this pt. Order received for labs to be drawn. Dr. Mahoney was core texted with images of tele strip and ekg and informed of cardiology being notified.
--- NOTE | 2020-02-28 06:38 | NURSING ---
RN CALLED PATIENT COMPLAINING OF FEELING DIAPHORETIC AND HOT, BS 109. DENIES ANY CP SOB OR NAUSEA.
--- NOTE | 2020-02-28 06:45 | EKG12_ITS ---
Test Reason : RHYTHM CHANGE Blood Pressure : / mmHG Vent. Rate : 066 BPM Atrial Rate : 066 BPM P-R Int : 162 ms QRS Dur : 078 ms QT Int : 396 ms P-R-T Axes : 029 -07 014 degrees QTc Int : 415 ms Normal sinus rhythm Normal ECG When compared with ECG of 27-FEB-2020 06:56, MANUAL COMPARISON REQUIRED, DATA IS UNCONFIRMED Confirmed by FELTON MCCABE, SHARAD ([id number]), technical writer and editor JEYSON BEGUM ([id number]) on 03/01/2020 11:06:14 AM Referred By: TAYLOR Confirmed By:SHARAD YA MD
[2020-02-28 06:46] LABS: Bedside Glucose 109 mg/dL (70-110)
[2020-02-28 07:12] LABS: Anion Gap 8 (5-15); BUN 25 mg/dL (7-18); BUN/Creat Ratio 25.5 RATIO (10-20); Calcium,Total 8.5 mg/dL (8.5-10.1); Chloride 103 mmol/L (98-107); Cholesterol 141 mg/dL (200); Creatinine, Serum 0.98 mg/dL (0.70-1.30); EST Glomerular Filtration Rate 83 mL/min (>60); Est Glom Filt Rate - Afr Amer 100 mL/min (>60); Estimated Creatinine Clearance 86.88 ml/min; Glucose 119 mg/dL (74-106); High Density Lipoprotein 48 mg/dL; Potassium 4.3 mmol/L (3.5-5.1); Sodium Level 135 mmol/L (136-145); Triglycerides 110 mg/dL; Very Low Density Lipoprotein 22 mg/dL (5-40)
[2020-02-28] MEDS: Aspirin E.C. 81 MG Tablet PO (07:39)
[2020-02-28] MEDS: Loratadine 10 MG Tablet PO (09:02)
[2020-02-28] MEDS: Escitalopram Oxalate 10 MG Tablet 20 MG PO (09:02)
[2020-02-28] MEDS: Lisinopril 20 MG Tablet PO (09:02)
[2020-02-28] MEDS: buPROPion (XL) 150 MG TABLET.XL PO (09:03)
[2020-02-28] MEDS: Metoprolol Tartrate 25 MG Tablet PO ×2 (09:03→21:10)
[2020-02-28] MEDS: Pantoprazole Sodium 40 MG Tablet PO (09:03)
[2020-02-28] MEDS: hydroCHLOROthiazide 12.5mg 12.5 MG PO (09:57)
--- NOTE | 2020-02-28 10:15 | PCM.PN.CARD ---
Subjectve: No chest pain since I saw him yesterday. He ambulates a little bit with no difficulty. He is ready for cardiac catheterization tomorrow Objective: Vital Signs Temp Pulse Resp BP Pulse Ox 98.2 F 80 18 163/79 H 96 02/28/20 09:00 02/28/20 09:03 02/28/20 09:00 02/28/20 09:00 02/28/20 09:00 Oxygen Delivery Method Room Air Weight: 369 lb 1.6 oz Body Mass Index (BMI) 50.0 Intake and Output for Last 24 Hours 02/26/20 02/27/20 02/28/20 23:59 23:59 23:59 Intake Total 1510.25 / 1510.25 100 / 100 Balance 1510.25 / 1510.25 100 / 100 General: Healthy Appearing, No Acute Distress HEENT: Atraumatic Neck: Supple Lungs: Clear to auscultation, Diminished [place] Bases Cardiovascular: Regular Rhythm, Normal S1, Normal S2, No Murmurs Abdomen: Bowel Sounds Present, Non Tender, - - Obese abdomen Neurological: No Focal Motor or Sensory Deficit Psych/Mental Status: Appropriate 02/27/20 02:50: Hemoglobin A1c 5.6 02/27/20 11:08: Troponin I < 0.015 02/28/20 05:27: WBC 5.8, RBC 4.77, Hgb 13.6, Hct 43.2, MCV 90.6, MCH 28.5, MCHC 31.5 L, Plt Count 184, MPV 10.4, Immature Gran % (Auto) 1.700 H, Neut % (Auto) 67.3, Lymph % (Auto) 18.3 L, [place] % (Auto) 10.7 H, Eos % (Auto) 1.0, Baso % (Auto) 1.0, Absolute Neuts (auto) 3.9, Nucleated RBC % 0 02/28/20 05:27: Sodium 135 L, Potassium 4.3, Chloride 103, Carbon Dioxide 24.0, Anion Gap 8, BUN 25 H, Creatinine 0.98, Est GFR (MDRD) Af Amer 100, Est GFR (MDRD) Non-Af 83, BUN/Creatinine Ratio 25.5 H, Glucose 119 H, Calcium 8.5, Triglycerides 110, Cholesterol 141, LDL Cholesterol 71, VLDL Cholesterol 22, HDL Cholesterol 48 02/28/20 05:27: Magnesium 2.0 Rhythm: EKG: ECHO: Stress Test: Cardiac Cath: PCI: CT Surgery: Holter monitor: EPS: PPM: CXR: Chest CT Scan: Medical Necessity - Tobacco Use Smoking Status: Never smoker Tobacco Use: Chew Assessment/Plan #1 functional class IV angina. Symptom has been building up for 4 months with functional class III angina at that time. Nuclear stress test was performed recently and was told to be normal. In view of the typical symptoms I would recommend proceeding with cardiac catheterization. Patient has agreed with the risk and benefit of the procedure. The best approach because of the obesity would be using right radial approach. Aspirin and Lovenox will be given. Beta-jovan and Nitropaste will be continued. Echocardiogram will be ordered. N.p.o. after midnight. Lovenox will be stopped by midnight #2 obesity and hypertension
[2020-02-28] MEDS: 0.9% Normal Saline 1,000 ML 60 ML IV (10:34)
--- NOTE | 2020-02-28 11:49 | PN_ITS ---
<Odalis Dean - Last Filed: 02/28/20 11:51> Patient Problems: Active and Suspected Problems Chest pain (Acute) Elevated troponin (Acute) Angina at rest (Acute) Subjective: Patient seen and examined. Reports he was diaphoretic overnight. Denies chest pain, shortness of breath overnight. Plan for heart cath in a.m. - Physical Exam Vitals/I&O's: Vital Signs Temp Pulse Resp BP Pulse Ox 98.2 F 80 18 163/79 H 96 02/28/20 09:00 02/28/20 09:03 02/28/20 09:00 02/28/20 09:00 02/28/20 09:00 Oxygen Delivery Method Room Air Weight: 369 lb 1.6 oz Body Mass Index (BMI) 50.0 Intake and Output for Last 24 Hours 02/26/20 02/27/20 02/28/20 23:59 23:59 23:59 Intake Total 1510.25 / 1510.25 300 / 300 Balance 1510.25 / 1510.25 300 / 300 General: Alert, Oriented x3, Cooperative HEENT: Atraumatic, PERRLA, EOMI, Normocephalic Neck: Supple, No JVD, Negative Carotid Bruits Lungs: Clear to auscultation, Diminished Cardiovascular: Regular rate, No murmurs Abdomen: Bowel Sounds Present, Soft, Non Tender, Non-Distended, Obese Extremities: No clubbing, No cyanosis, No edema, Capillary Refill Less than 3 Seconds Skin: No rashes, No breakdown Musculoskeletal: No Tenderness to Palpation of Joints or Extremities Neurological: Cranial nerves II-XII grossly intact, Neuro grossly intact Psych/Mental Status: Normal Affect, Appropriate Laboratory Results 02/27/20 02:50: Hemoglobin A1c 5.6 02/28/20 05:27: WBC 5.8, RBC 4.77, Hgb 13.6, Hct 43.2, MCV 90.6, MCH 28.5, MCHC 31.5 L, RDW Std Deviation 47.7 H, RDW Coeff of Nella 14.2, Plt Count 184, MPV 10.4, Immature Gran % (Auto) 1.700 H, Neut % (Auto) 67.3, Lymph % (Auto) 18.3 L, [place] % (Auto) 10.7 H, Eos % (Auto) 1.0, Baso % (Auto) 1.0, Absolute Neuts (auto) 3.9, Absolute Lymphs (auto) 1.06, Nucleated RBC % 0 02/28/20 05:27: Sodium 135 L, Potassium 4.3, Chloride 103, Carbon Dioxide 24.0, Anion Gap 8, BUN 25 H, Creatinine 0.98, Estim Creat Clear Calc 86.88, Est GFR (MDRD) Af Amer 100, Est GFR (MDRD) Non-Af 83, BUN/Creatinine Ratio 25.5 H, Glucose 119 H, Calcium 8.5, Triglycerides 110, Cholesterol 141, LDL Cholesterol 71, VLDL Cholesterol 22, HDL Cholesterol 48 02/28/20 05:27: Magnesium 2.0 02/28/20 06:35: POC Glucose 109 Current Medications Hydrocodone Bitart/Acetaminophen ([place] 5mg-325mg) 1 - 2 tablet PO Q4H PRN PRN PRN Reason: PAIN SCORE 1-1010 Last Admin: 02/28/20 05:19 Dose: 2 tablet Documented by[facility] Last Admin: 02/28/20 07:39 Dose: 81 mg Documented by: Bupropion HCl (Wellbutrin Xl) 150 mg PO DAILY [facility] Last Admin: 02/28/20 09:03 Dose: 150 mg Documented by: Cyclobenzaprine HCl (Flexeril) 10 mg PO TID PRN PRN Reason: MUSCLE SPASMS Enoxaparin Sodium (Lovenox) 100 mg SC Q12@0600,1800 [facility] Stop: 02/29/20 00:00 Last Admin: 02/28/20 05:19 Dose: 100 mg Documented by: Escitalopram Oxalate (Lexapro) 20 mg PO DAILY [facility] Last Admin: 02/28/20 09:02 Dose: 20 mg Documented by: Hydrochlorothiazide () 12.5 mg PO DAILY [facility] Last Admin: 02/28/20 09:57 Dose: 12.5 mg Documented by: Sodium Chloride () 250 mls @ 15 mls/hr IV .[id number] PRN PRN Reason: Saline Flush Sodium Chloride () 250 mls @ 15 mls/hr IV .[id number] PRN PRN Reason: Additional IVPB Infusion Sodium Chloride () 1,000 mls @ 60 mls/hr IV .[id number] [facility] Last Admin: 02/28/20 10:34 Dose: 60 mls/hr Documented by: Lisinopril (Zestril) 20 mg PO DAILY [facility] Last Admin: 02/28/20 09:02 Dose: 20 mg Documented by: Loratadine (Claritin) 10 mg PO DAILY [facility] Last Admin: 02/28/20 09:02 Dose: 10 mg Documented by: Metoprolol Tartrate (Lopressor (Beta Pako)) 25 mg PO BID [facility] Last Admin: 02/28/20 09:03 Dose: 25 mg Documented by: Nitroglycerin (Nitrostat) 0.4 mg SUBLINGUAL Q5M PRN PRN Reason: CARDIAC/CHEST PAIN Nitroglycerin (Nitrobid) 0.5 inch TRANSDERM. Q8 [facility] Last Admin: 02/28/20 05:18 Dose: 0.5 inch Documented by: Pantoprazole Sodium (Protonix) 40 mg PO DAILY [facility] Last Admin: 02/28/20 09:03 Dose: 40 mg Documented by: Sodium Chloride () 10 - 40 ml IV UD PRN PRN Reason: SALINE FLUSH Last Admin: 02/28/20 10:34 Dose: 10 ml Documented by: Trazodone HCl (Desyrel) 50 mg PO QHS [facility] Medical Necessity - Tobacco Use Smoking Status: Never smoker Tobacco Use: Chew Assessment/Plan All Active Problems Chest pain (Acute) Elevated troponin (Acute) Angina at rest (Acute) 1. Chest pain, dyspnea on exertion-initial troponin 0.163. Repeat troponin 0.015. Chest x-ray without acute ischemia. Per [facility] records, stress test completed 01/18/2020 was negative for inducible ischemia. Echocardiogram 02/21/2020 demonstrated an EF of 60%, no evidence of diastolic dysfunction. Chest CTA without PE or arterial dissection. Continue aspirin. Cardiology consulted given ongoing symptoms and recent normal stress test with abnormal troponin. COVID negative. Plan for heart cath in a.m. 2. Hypertension-stable, continue lisinopril/HCTZ, metoprolol regimen. 3. Chronic back pain-on disability due to chronic pain. Continue home PRN regimen. 4. GERD-continue home Prevacid, Pepcid regimen. 5. KETAN-continue home Pap regimen. 6. Morbid obesity-encouraged diet and lifestyle modifications. Nutrition consult. 7. Major depressive disorder-continue home Lexapro, Wellbutrin regimen. DVT prophylaxis- Lovenox sc This patient was seen by MICHAEL Weaver under the supervision of Dr. Chappell. <Santhosh Chappell F - Last Filed: 02/28/20 14:21> - Physical Exam Vitals/I&O's: Vital Signs Temp Pulse Resp BP Pulse Ox 98.2 F 68 18 110/70 96 02/28/20 09:00 02/28/20 13:50 02/28/20 09:00 02/28/20 13:50 02/28/20 09:00 Oxygen Delivery Method Room Air Weight: 369 lb 1.6 oz Body Mass Index (BMI) 50.0 Intake and Output for Last 24 Hours 02/26/20 02/27/20 02/28/20 23:59 23:59 23:59 Intake Total 1510.25 / 1510.25 300 / 300 Balance 1510.25 / 1510.25 300 / 300 Laboratory Results 02/27/20 02:50: Hemoglobin A1c 5.6 02/28/20 05:27: WBC 5.8, RBC 4.77, Hgb 13.6, Hct 43.2, MCV 90.6, MCH 28.5, MCHC 31.5 L, RDW Std Deviation 47.7 H, RDW Coeff of Nella 14.2, Plt Count 184, MPV 10.4, Immature Gran % (Auto) 1.700 H, Neut % (Auto) 67.3, Lymph % (Auto) 18.3 L, [place] % (Auto) 10.7 H, Eos % (Auto) 1.0, Baso % (Auto) 1.0, Absolute Neuts (auto) 3.9, Absolute Lymphs (auto) 1.06, Nucleated RBC % 0 02/28/20 05:27: Sodium 135 L, Potassium 4.3, Chloride 103, Carbon Dioxide 24.0, Anion Gap 8, BUN 25 H, Creatinine 0.98, Estim Creat Clear Calc 86.88, Est GFR (MDRD) Af Amer 100, Est GFR (MDRD) Non-Af 83, BUN/Creatinine Ratio 25.5 H, Glucose 119 H, Calcium 8.5, Triglycerides 110, Cholesterol 141, LDL Cholesterol 71, VLDL Cholesterol 22, HDL Cholesterol 48 02/28/20 05:27: Magnesium 2.0 02/28/20 06:35: POC Glucose 109 Current Medications Hydrocodone Bitart/Acetaminophen ([place] 5mg-325mg) 1 - 2 tablet PO Q4H PRN PRN PRN Reason: PAIN SCORE 1-10/10 Last Admin: 02/28/20 05:19 Dose: 2 tablet Documented by: Aspirin (Ecotrin) 81 mg PO DAILYCM [facility] Last Admin: 02/28/20 07:39 Dose: 81 mg Documented by: Bupropion HCl (Wellbutrin Xl) 150 mg PO DAILY [facility] Last Admin: 02/28/20 09:03 Dose: 150 mg Documented by: Cyclobenzaprine HCl (Flexeril) 10 mg PO TID PRN PRN Reason: MUSCLE SPASMS Enoxaparin Sodium (Lovenox) 100 mg SC Q12@0600,1800 [facility] Stop: 02/29/20 00:00 Last Admin: 02/28/20 05:19 Dose: 100 mg Documented by: Escitalopram Oxalate (Lexapro) 20 mg PO DAILY [facility] Last Admin: 02/28/20 09:02 Dose: 20 mg Documented by: Hydrochlorothiazide () 12.5 mg PO DAILY [facility] Last Admin: 02/28/20 09:57 Dose: 12.5 mg Documented by: Sodium Chloride () 250 mls @ 15 mls/hr IV .[id number] PRN PRN Reason: Saline Flush Sodium Chloride () 250 mls @ 15 mls/hr IV .[id number] PRN PRN Reason: Additional IVPB Infusion Sodium Chloride () 1,000 mls @ 60 mls/hr IV .[id number] [facility] Last Admin: 02/28/20 10:34 Dose: 60 mls/hr Documented by: Lisinopril (Zestril) 20 mg PO DAILY [facility] Last Admin: 02/28/20 09:02 Dose: 20 mg Documented by: Loratadine (Claritin) 10 mg PO DAILY [facility] Last Admin: 02/28/20 09:02 Dose: 10 mg Documented by: Metoprolol Tartrate (Lopressor (Beta Pako)) 25 mg PO BID [facility] Last Admin: 02/28/20 09:03 Dose: 25 mg Documented by: Nitroglycerin (Nitrostat) 0.4 mg SUBLINGUAL Q5M PRN PRN Reason: CARDIAC/CHEST PAIN Nitroglycerin (Nitrobid) 0.5 inch TRANSDERM. Q8 [facility] Last Admin: 02/28/20 13:50 Dose: 0.5 inch Documented by: Pantoprazole Sodium (Protonix) 40 mg PO DAILY [facility] Last Admin: 02/28/20 09:03 Dose: 40 mg Documented by: Sodium Chloride () 10 - 40 ml IV UD PRN PRN Reason: SALINE FLUSH Last Admin: 02/28/20 10:34 Dose: 10 ml Documented by: Trazodone HCl (Desyrel) 50 mg PO QHS [facility] Addendum: Dr. Chappell I personally examined the patient and reviewed the chart. I agree with the above. 59-year-old male with depression, anxiety presents with chest pain. He said that he had a similar chest pain about a month ago and was seen at [facility] with a normal stress test. He presents again with chest pain that woke him up from sleep at around 1 AM. He presented to the hospital initial troponin was positive the 0.163 however subsequent troponins have normalized to .015. He also had an elevated d-dimer on admission, CTA was negative. At some point he had a slight temperature and was complaining of myalgias and shortness of breath and a COVID test was performed which was also negative. Cardiology was consulted secondary to the chronicity of his pain, and they felt that he would be a good candidate for cardiac cath on Saturday. Of note he has been chest pain- free since admission though he did have an episode of diaphoresis/lightheadedness last night. Inpatient E&M: [id number] [facility] L2
[2020-02-28] MEDS: Gabapentin 300 MG Capsule PO (16:25)
[2020-02-28] MEDS: traZODone 50 MG Tablet PO (21:10)
[2020-02-29] VITALS (13 sets, daily range): BP systolic 120–142; BP diastolic 59–71; PULSE 58–67; RESP 12–18; TEMP 36.6–36.7; O2SAT 96–100
[2020-02-29] MEDS: 0.9% Normal Saline 1,000 ML 60 ML IV (01:35)
[2020-02-29] MEDS: HYDROcodone Bitartrate/Apap 5/325 Tablet PO ×2 (04:18→11:26)
[2020-02-29 05:55] LABS: Hematocrit 41.2 % (40-54); Hemoglobin 12.8 g/dL (13.0-16.5); Mean Corp Hgb Conc 31.1 g/dL (32-36); Mean Corpuscular Hgb 28.4 pg (27.0-32.0); Mean Corpuscular Volume 91.4 fL (80-94); Mean Platelet Vol. 10.4 fl (6.2-12.0); Platelet Count 189 K/mm3 (150-450); RBC Distribution Width CV 14.4 % (11.6-14.6); RBC Distribution Width SD 48.6 fl (35.1-43.9); Red Blood Count 4.51 M/mm3 (4.6-6.2); White Blood Count 6.4 K/mm3 (4.4-11.0)
--- NOTE | 2020-02-29 05:55 | EKG12_ITS ---
Test Reason : AM EKG Blood Pressure : / mmHG Vent. Rate : 061 BPM Atrial Rate : 061 BPM P-R Int : 166 ms QRS Dur : 082 ms QT Int : 440 ms P-R-T Axes : 011 -05 020 degrees QTc Int : 442 ms Normal sinus rhythm Normal ECG When compared with ECG of 28-FEB-2020 06:35, MANUAL COMPARISON REQUIRED, DATA IS UNCONFIRMED Confirmed by FELTON MCCABE, SHARAD ([id number]), mapping editor JEYSON BEGUM ([id number]) on 03/01/2020 11:00:53 AM Referred By: DR VAZQUEZ Confirmed By:SHARAD YA MD
[2020-02-29 06:07] LABS: Prothrombin Time (Protime)PT. 13.2 SECONDS (11.7-14.9)
[2020-02-29 06:25] LABS: Anion Gap 7 (5-15); BUN 23 mg/dL (7-18); BUN/Creat Ratio 21.9 RATIO (10-20); Calcium,Total 8.8 mg/dL (8.5-10.1); Chloride 103 mmol/L (98-107); Creatinine, Serum 1.05 mg/dL (0.70-1.30); EST Glomerular Filtration Rate 76 mL/min (>60); Est Glom Filt Rate - Afr Amer 92 mL/min (>60); Estimated Creatinine Clearance 81.09 ml/min; Glucose 98 mg/dL (74-106); Potassium 4.3 mmol/L (3.5-5.1); Sodium Level 136 mmol/L (136-145)
[2020-02-29] MEDS: Aspirin E.C. 81 MG Tablet PO (06:55)
[2020-02-29] MEDS: Metoprolol Tartrate 25 MG Tablet PO (06:55)
[2020-02-29] MEDS: Nitroglycerin Oint 1 INCH PACKET 0.5 INCH TRANSDERM. (06:55)
[2020-02-29] MEDS: TICAGRELOR 90 MG TABLET 180 MG PO (08:25)
[2020-02-29] MEDS: DiphenhydrAMINE 25 MG Capsule 50 MG PO (08:25)
--- NOTE | 2020-02-29 08:58 | CASEMGMT ---
[facility], the following are in-network tertiary facilities: [facility], [facility], [place], [facility], [facility], [place], [facility], and . J Carlos ANDERSON CM
--- NOTE | 2020-02-29 10:30 | CASEMGMT ---
Addendum entered by Maxine Veliz 02/29/20 12:08: This RN CM to room with [facility] form at this time, explanation done-pt voices understanding, and signs [facility]KEON form at this time. Original to chart and copy to pt at this time. 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 This RN CM mentions [facility] bereavement counseling to pt at this time and pt states 'I know I may need to call them.' Pt states that his was with hospice prior to passing and that the CM from there has called to check on him a few times and pt states he hasn't really been honest with her but feels that he may be ready to talk to someone now. Pt given [facility] bereavement pamphlet at this time and voices gratitude to this RN CM at this time. Pt voices no further questions/concerns/needs at this time. J Carlos ANDERSON CM Original Note: This RN CM to room with [facility] form at this time but pt is out of the dept getting heart cath at this time. Will attempt again later. J Carlos ANDERSON CM
--- NOTE | 2020-02-29 11:01 | CL.D_ITS ---
Patient Name: SUSAN YARBROUGH Study Date: 02/29/2020 Performing: Yaya Maki MD Ht: 72.04 inches 183 cm : 1960 Wt: 368.17 lbs 167 kg Age: 59 Gender: male BSA: 2.76 PROCEDURE(S) PERFORMED [id number]/LV CLINICAL PROFILE AND INDICATIONS Indications: ACS > 24 hrs, New Onset Angina <= 2 months, Suspected CAD Heart Failure: None Stress/Imaging Date: 02/08/2020Stress Test with SPECT MPI: Negative Angina Classification Anginal Classification w/in 2 Weeks: CCS III CAD Presentations: Unstable angina. Comorbidities/Risk Factors: Hypertension Dyslipidemia Diabetes Mellitus: Diabetes Therapy: Oral CONCLUSIONS Normal coronary arteries Normal LV size, wall motion,and systolic function Perserved Left Ventricular systolic function with normal EDP RECOMMENDATIONS No recommendations -> Normal findings Management as per referring Application Systems Engineer EVAL FOR NON CARDIAC SOURCE OF CHEST PAIN. Manual sheath removal. D/w Dr Chappell DESCRIPTION OF PROCEDURE The patient arrived to the procedure lab. The risks and benefits of the procedure as well as a full d escription of our services here and current unavailability of surgical backup were fully explained to the patient and/or their significant other prior to the catheterization. The Timeout was completed, verifying the correct patient and procedure. The patient's procedural site was prepped and draped in the usual fashion. Local anesthetic was given subcutaneously to right radial region with Lidocaine 2% . Using a modified Seldinger technique, arterial access was obtained via the right femoral artery, a 4Fr sheath was inserted Left Coronary Artery selective angiography was performed in multiple views u sing a 4 Fr. JL5 catheter. Right Coronary Artery selective angiography was then performed in multiple views using a 4 Fr. 3DRC catheter. Left Ventriculography was performed in DAVIS projection using a 4 F r. Pigtail catheter. LV to AO pullback pressures were then recorded. CORONARY ANGIOGRAPHY DOMINANCE: Right Dominant LEFT HEART ASSESSMENT Left Ventricular Ejection Fraction: by LV Gram 65 % Normal LV wall motion Normal Left Ventricular systolic function Normal Left Ventricular systolic function LEFT MAIN: Angiographically normal LEFT ANTERIOR DESCENDING ARTERY: Angiographically normal CIRCUMFLEX ARTERY: Angiographically normal RIGHT CORONARY ARTERY: Angiographically normal COMPLICATIONS No Complications PROCEDURE MEDICATIONS Versed 1 mg IV Fentanyl 50 mcg IV Oxygen: 2 L/min via nasal cannula SUMMARY OF HEMODYNAMIC DATA Time AIR REST ECG 10:09:19 AO 105/74 (88) SA 10:43:30 AO 128/83 (107) 10:45:48 LV 137/-21, 7 10:48:30 LV 138/-24, 10 10:48:36 LVp 137/-22, 10 10:48:43 AOp 126/69 (93) 10:48:48 Signed By Yaya Maki MD On 02/29/2020 11:00:51 Yaya Maki MD
--- NOTE | 2020-02-29 12:19 | PCM.DC ---
- Discharge Diagnoses Current Active Problems: Current Active and Chronic Problems Chest pain (Acute) Elevated troponin (Acute) Angina at rest (Acute) You will use the following diet at home:: Calorie/Carbohydrate Controlled (specify 1200, 1400, etc) Discharge Activity: Return to Normal Activity Call your doctor if you observe: Shortness of breath, Dizziness, Fainting spells, Chest pain Allergies/Adverse Reactions: Allergies esomeprazole magnesium [From Nexium] Adverse Reaction (Verified 02/27/20 02:49) Upset Stomach Medications to take at Discharge Escitalopram Oxalate [Lexapro] 20 mg PO DAILY 08/19/15 Famotidine [Pepcid] 40 mg PO BID PRN 08/19/15 Lisinopril/Hydrochlorothiazide [Zestoretic /.5 Tablet] 1 tablet PO DAILY 08/19/15 traZODone [Desyrel] 50 mg PO DAILY 08/19/15 Celecoxib 200 mg PO DAILY 05/21/17 Fexofenadine HCl 180 mg PO DAILY 05/21/17 Hydrocodone Bitart/Apap 5-325 [[place] 5/325] 1 - 2 tablet PO Q4H PRN PRN #12 tablet 05/21/17 Lansoprazole [Prevacid] 30 mg PO DAILY 05/21/17 Meclizine HCl [Antivert] 25 mg PO 4X/DAY PRN PRN 05/21/17 Mometasone Furoate [Nasonex] 1 spray NASAL DAILY PRN 05/21/17 buPROPion XL [Wellbutrin Xl] 150 mg PO DAILY 05/21/17 cycloBENZAPRine HCl [Flexeril] 10 mg PO TID PRN #20 tablet 03/09/18 Aspirin [Aspir 81] 81 mg PO DAILY 02/27/20 Metoprolol Tartrate 25 mg PO BID 02/27/20 Gabapentin 300 mg PO TID 02/28/20 Primary Care Physician: Sixto Schulz DO [Primary Care Provider] - Please follow up with your Primary Care Physician in: 1 Week Test Results: Test results from this visit will be discussed in further detail at your follow-up appointment, if applicable. Proposed Discharge Date: 02/29/20
--- NOTE | 2020-02-29 12:23 | PCM.DC.SUM ---
<Odalis Dean - Last Filed: 02/29/20 12:29> Discharge Date and Diagnosis Date of Admission: 02/27/20 Date of Discharge: 02/29/20 - Primary Discharge Diagnosis Acute Problems: Active Problems 1. Chest pain, dyspnea on exertion-ACS/CAD ruled out 2. Hypertension 3. Chronic back pain 4. GERD 5. KETAN 6. Morbid obesity 7. Major depressive disorder - Secondary Discharge Diagnosis Chronic Problems: Chronic Problems GERD (gastroesophageal reflux disease) (Chronic) Hypertension (Chronic) Hospital Course and Treatment Imaging Results: Diagnostic Data Chest X-Ray 02/27/20 03:52 IMPRESSION: Borderline cardiomegaly. Electronically Signed: Ivania Franco MD at 4:57 EDT , Service support , Chest CTA 02/27/20 05:49 IMPRESSION: No CTA demonstrated pulmonary embolism or arterial dissection. Electronically Signed: Ivania Franco MD at 7:27 EDT , Service support , Dr. Mccormack- Cardiology Operations: None Procedures: Cardiac catheterization Summary of Care Provided: The patient is a 59 year old M admitted 02/27/2020 due to chest pain and dyspnea on exertion. 1. Chest pain, dyspnea on exertion-ACS/CAD ruled out. Initial troponin 0.163. Repeat troponin 0.015. Chest x-ray without acute ischemia. Per [facility] records, stress test completed 01/18/2020 was negative for inducible ischemia. Echocardiogram 02/21/2020 demonstrated an EF of 60%, no evidence of diastolic dysfunction. Chest CTA without PE or arterial dissection. Continue aspirin. Cardiology consulted given ongoing symptoms and recent normal stress test with abnormal troponin. COVID negative. Patient underwent heart cath which demonstrated normal coronary arteries. Feel patient's ongoing symptoms are anxiety related. Patient lost his to cancer recently and he had been taking care of her at home the past to 3 years. Case management discussed with patient following with life care bereavement counseling. Recommend follow-up with primary care physician as well for further management of anxiety/depression. 2. Hypertension-stable, continue lisinopril/HCTZ, metoprolol regimen. 3. Chronic back pain-on disability due to chronic pain. Continue home PRN regimen. 4. GERD-continue home Prevacid, Pepcid regimen. 5. KETAN-continue home Pap regimen. 6. Morbid obesity-encouraged diet and lifestyle modifications. Nutrition consult. 7. Major depressive disorder-continue home Lexapro, Wellbutrin regimen. Recommend outpatient counseling as noted above. General: Alert, Oriented x3, Cooperative HEENT: Atraumatic, PERRLA, EOMI, Normocephalic Neck: Supple, No JVD, Negative Carotid Bruits Lungs: Clear to auscultation, Diminished Cardiovascular: Regular rate, No murmurs Abdomen: Bowel Sounds Present, Soft, Non Tender, Non-Distended, Obese Extremities: No clubbing, No cyanosis, No edema, Capillary Refill Less than 3 Seconds Skin: No rashes, No breakdown Musculoskeletal: No Tenderness to Palpation of Joints or Extremities Neurological: Cranial nerves II-XII grossly intact, Neuro grossly intact Psych/Mental Status: Normal Affect, Appropriate Patient seen and examined prior to discharge. Physical assessment as noted above. Patient is stable for discharge with follow up recommendations as noted above. This patient was seen by MICHAEL Weaver under the supervision of Dr. Chappell. - Physical Exam Vitals/I&O's: Vital Signs Temp Pulse Resp BP Pulse Ox 98.1 F 58 L 16 136/71 H 100 02/29/20 11:21 02/29/20 11:51 02/29/20 11:51 02/29/20 11:51 02/29/20 11:51 Oxygen Delivery Method Room Air Weight: 369 lb 1.6 oz Body Mass Index (BMI) 50.0 Intake and Output for Last 24 Hours 02/27/20 02/28/20 02/29/20 23:59 23:59 23:59 Intake Total 1510.25 / 1510.25 920 / 920 950 / 950 Balance 1510.25 / 1510.25 920 / 920 950 / 950 Laboratory Results 02/29/20 05:30: WBC 6.4, RBC 4.51 L, Hgb 12.8 L, Hct 41.2, MCV 91.4, MCH 28.4, MCHC 31.1 L, RDW Std Deviation 48.6 H, RDW Coeff of Nella 14.4, Plt Count 189, MPV 10.4 02/29/20 05:30: PT 13.2, INR 1.0 02/29/20 05:30: Sodium 136, Potassium 4.3, Chloride 103, Carbon Dioxide 26.0, Anion Gap 7, BUN 23 H, Creatinine 1.05, Estim Creat Clear Calc 81.09, Est GFR (MDRD) Af Amer 92, Est GFR (MDRD) Non-Af 76, BUN/Creatinine Ratio 21.9 H, Glucose 98, Calcium 8.8 Current Medications Hydrocodone Bitart/Acetaminophen (Wallagrass 5mg-325mg) 1 - 2 tablet PO Q4H PRN PRN PRN Reason: PAIN SCORE 1-06/18 Last Admin: 02/29/20 11:26 Dose: 2 tablet Documented by: [facility] Admin: 02/29/20 06:55 Dose: 81 mg Documented by: Bupropion HCl (Wellbutrin Xl) 150 mg PO DAILY [facility] Last Admin: 02/28/20 09:03 Dose: 150 mg Documented by: Cyclobenzaprine HCl (Flexeril) 10 mg PO TID PRN PRN Reason: MUSCLE SPASMS Escitalopram Oxalate (Lexapro) 20 mg PO DAILY [facility] Last Admin: 02/28/20 09:02 Dose: 20 mg Documented by: Gabapentin (Neurontin) 300 mg PO TIDCM [facility] Last Admin: 02/29/20 10:30 Dose: Not Given Documented by: Heparin Sodium (Beef Lung) (Heparin 500 Unit/5 Ml (100/Ml)) 500 unit IV UD PRN PRN Reason: HEPARIN FLUSH Hydrochlorothiazide () 12.5 mg PO DAILY [facility] Last Admin: 02/28/20 09:57 Dose: 12.5 mg Documented by: Sodium Chloride () 250 mls @ 15 mls/hr IV .[id number] PRN PRN Reason: Saline Flush Sodium Chloride () 250 mls @ 15 mls/hr IV .[id number] PRN PRN Reason: Additional IVPB Infusion Sodium Chloride () 1,000 mls @ 60 mls/hr IV .[id number] [facility] Last Admin: 02/29/20 01:35 Dose: 60 mls/hr Documented by: Sodium Chloride () 1,000 mls @ 0 mls/hr IV .Q0M [facility] Labetalol HCl (Trandate) 5 mg IV X1 PRN PRN Reason: SBP > 160 prior to sheath pull Stop: 03/02/20 10:55 Lisinopril (Zestril) 20 mg PO DAILY [facility] Last Admin: 02/28/20 09:02 Dose: 20 mg Documented by: Loratadine (Claritin) 10 mg PO DAILY [facility] Last Admin: 02/28/20 09:02 Dose: 10 mg Documented by: Metoprolol Tartrate (Lopressor (Beta Pako)) 25 mg PO BID [facility] Last Admin: 02/29/20 06:55 Dose: 25 mg Documented by: Nitroglycerin (Nitrostat) 0.4 mg SUBLINGUAL Q5M PRN PRN Reason: CARDIAC/CHEST PAIN Nitroglycerin (Nitrobid) 0.5 inch TRANSDERM. Q8 [facility] Last Admin: 02/29/20 06:55 Dose: 0.5 inch Documented by: Nystatin (Mycostatin Powder) 1 applic TOPICAL TID [facility]; Protocol Last Admin: 02/28/20 23:55 Dose: Not Given Documented by: Pantoprazole Sodium (Protonix) 40 mg PO DAILY [facility] Last Admin: 02/28/20 09:03 Dose: 40 mg Documented by: Sodium Chloride () 10 - 40 ml IV UD PRN PRN Reason: SALINE FLUSH Last Admin: 02/28/20 10:34 Dose: 10 ml Documented by: Trazodone HCl (Desyrel) 50 mg PO QHS [facility] Last Admin: 02/28/20 21:10 Dose: 50 mg Documented by: Discharge Diet: Low fat/ Low Cholesterol, 1800 Calorie Control Diet Discharge Activity: Return to Normal Activity Call your doctor if you observe: Shortness of breath, Dizziness, Fainting spells, Chest pain Home Medications: Medications to take at Discharge Escitalopram Oxalate [Lexapro] 20 mg PO DAILY 08/19/15 Famotidine [Pepcid] 40 mg PO BID PRN 08/19/15 Lisinopril/Hydrochlorothiazide [Zestoretic 28/08.5 Tablet] 1 tablet PO DAILY 08/19/15 traZODone [Desyrel] 50 mg PO DAILY 08/19/15 Celecoxib 200 mg PO DAILY 05/21/17 Fexofenadine HCl 180 mg PO DAILY 09/12/17 Hydrocodone Bitart/Apap 5-325 [Wallagrass 5/325] 1 - 2 tablet PO Q4H PRN PRN #12 tablet 05/21/17 Lansoprazole [Prevacid] 30 mg PO DAILY 05/21/17 Meclizine HCl [Antivert] 25 mg PO 4X/DAY PRN PRN 05/21/17 Mometasone Furoate [Nasonex] 1 spray NASAL DAILY PRN 05/21/17 buPROPion XL [Wellbutrin Xl] 150 mg PO DAILY 05/21/17 cycloBENZAPRine HCl [Flexeril] 10 mg PO TID PRN #20 tablet 03/09/18 Aspirin [Aspir 81] 81 mg PO DAILY 02/27/20 Metoprolol Tartrate 25 mg PO BID 02/27/20 Gabapentin 300 mg PO TID 02/28/20 Primary Care Physician: Sixto Schulz DO [Primary Care Provider] - Please follow up with your Primary Care Physician in: 1 Week Disposition: Home Minutes spent on discharge:: 35 Patient Condition:: Stable Medical Necessity - Tobacco Use Smoking Status: Never smoker Tobacco Use: Chew Meaningful Use Info Meaningful Use Diagnoses (Choose all that apply): None applicable <Santhosh Chappell F - Last Filed: 02/29/20 14:07> Discharge Date and Diagnosis - Secondary Discharge Diagnosis Chronic Problems: Chronic Problems History of left heart catheterization (Chronic 02/29/20) Normal coronary arteries. Normal LV size, wall motion,and systolic function. Perserved Left Ventricular systolic function with normal EDP. RECOMMENDATIONS: No recommendations -> Normal findings Management as per referring Casing Crew Pusher. EVAL FOR NON CARDIAC SOURCE OF CHEST PAIN. GERD (gastroesophageal reflux disease) (Chronic) Hypertension (Chronic) Hospital Course and Treatment Summary of Care Provided: The patient is a 59 year old M [] - Physical Exam Vitals/I&O's: Vital Signs Temp Pulse Resp BP Pulse Ox 98.1 F 67 16 138/69 H 100 02/29/20 11:21 02/29/20 12:50 02/29/20 12:50 02/29/20 12:50 02/29/20 12:50 Oxygen Delivery Method Room Air Weight: 369 lb 1.6 oz Body Mass Index (BMI) 50.0 Intake and Output for Last 24 Hours 02/27/20 02/28/20 02/29/20 23:59 23:59 23:59 Intake Total 1510.25 / 1510.25 920 / 920 950 / 950 Balance 1510.25 / 1510.25 920 / 920 950 / 950 Laboratory Results 02/29/20 05:30: WBC 6.4, RBC 4.51 L, Hgb 12.8 L, Hct 41.2, MCV 91.4, MCH 28.4, MCHC 31.1 L, RDW Std Deviation 48.6 H, RDW Coeff of Nella 14.4, Plt Count 189, MPV 10.4 02/29/20 05:30: PT 13.2, INR 1.0 02/29/20 05:30: Sodium 136, Potassium 4.3, Chloride 103, Carbon Dioxide 26.0, Anion Gap 7, BUN 23 H, Creatinine 1.05, Estim Creat Clear Calc 81.09, Est GFR (MDRD) Af Amer 92, Est GFR (MDRD) Non-Af 76, BUN/Creatinine Ratio 21.9 H, Glucose 98, Calcium 8.8 Current Medications Hydrocodone Bitart/Acetaminophen (Wallagrass 5mg-325mg) 1 - 2 tablet PO Q4H PRN PRN PRN Reason: PAIN SCORE 1-10/10 Last Admin: 02/29/20 11:26 Dose: 2 tablet Documented by: [facility] Last Admin: 02/29/20 06:55 Dose: 81 mg Documented by: Bupropion HCl (Wellbutrin Xl) 150 mg PO DAILY [facility] Last Admin: 02/29/20 12:53 Dose: 150 mg Documented by: Cyclobenzaprine HCl (Flexeril) 10 mg PO TID PRN PRN Reason: MUSCLE SPASMS Escitalopram Oxalate (Lexapro) 20 mg PO DAILY [facility] Last Admin: 02/29/20 12:53 Dose: 20 mg Documented by: Gabapentin (Neurontin) 300 mg PO TIDCM [facility] Last Admin: 02/29/20 12:56 Dose: 300 mg Documented by: Heparin Sodium (Beef Lung) (Heparin 500 Unit/5 Ml (100/Ml)) 500 unit IV UD PRN PRN Reason: HEPARIN FLUSH Hydrochlorothiazide () 12.5 mg PO DAILY [facility] Last Admin: 02/29/20 12:53 Dose: 12.5 mg Documented by: Sodium Chloride () 250 mls @ 15 mls/hr IV .[id number] PRN PRN Reason: Saline Flush Sodium Chloride () 250 mls @ 15 mls/hr IV .[id number] PRN PRN Reason: Additional IVPB Infusion Sodium Chloride () 1,000 mls @ 60 mls/hr IV .[id number] [facility] Last Admin: 02/29/20 01:35 Dose: 60 mls/hr Documented by: Sodium Chloride () 1,000 mls @ 0 mls/hr IV .Q0M [facility] Labetalol HCl (Trandate) 5 mg IV X1 PRN PRN Reason: SBP > 160 prior to sheath pull Stop: 03/02/20 10:55 Lisinopril (Zestril) 20 mg PO DAILY [facility] Last Admin: 02/29/20 12:53 Dose: 20 mg Documented by: Loratadine (Claritin) 10 mg PO DAILY [facility] Last Admin: 02/29/20 12:53 Dose: 10 mg Documented by: Metoprolol Tartrate (Lopressor (Beta Pako)) 25 mg PO BID [facility] Last Admin: 02/29/20 06:55 Dose: 25 mg Documented by: Nitroglycerin (Nitrostat) 0.4 mg SUBLINGUAL Q5M PRN PRN Reason: CARDIAC/CHEST PAIN Nitroglycerin (Nitrobid) 0.5 inch TRANSDERM. Q8 [facility] Last Admin: 02/29/20 06:55 Dose: 0.5 inch Documented by: Nystatin (Mycostatin Powder) 1 applic TOPICAL TID [facility]; Protocol Last Admin: 02/28/20 23:55 Dose: Not Given Documented by: Pantoprazole Sodium (Protonix) 40 mg PO DAILY [facility] Last Admin: 02/29/20 12:53 Dose: 40 mg Documented by: Sodium Chloride () 10 - 40 ml IV UD PRN PRN Reason: SALINE FLUSH Last Admin: 02/28/20 10:34 Dose: 10 ml Documented by: Trazodone HCl (Desyrel) 50 mg PO QHS [facility] Last Admin: 02/28/20 21:10 Dose: 50 mg Documented by: Addendum: Dr. Chappell I personally examined the patient and reviewed the chart. I agree with the above. 59-year-old male with depression, anxiety presents with chest pain. He said that he had a similar chest pain about a month ago and was seen at [facility] with a normal stress test. He presents again with chest pain that woke him up from sleep at around 1 AM. He presented to the hospital initial troponin was positive the 0.163 however subsequent troponins have normalized to .015. He also had an elevated d-dimer on admission, CTA was negative. At some point he had a slight temperature and was complaining of myalgias and shortness of breath and a COVID test was performed which was also negative. Cardiology was consulted secondary to the chronicity of his pain, and they felt that he would be a good candidate for cardiac cath which she had on the day of discharge which was unremarkable. Of note he has been chest pain-free since admission. He is stable for discharge home today, and follow-up with his PCP in 3 to 5 days. He does understand the risk and benefits of discharge at this time. Did have a discussion with him that given that his coronaries are clean it is possible that his chest pain could be related secondary to gastric reflux or even stress and anxiety as his recently . OBSV E&M: [id number] Observation care discharge
--- NOTE | 2020-02-29 12:47 | CHAPLAIN ---
Type of Pastoral Visit _x__ Initial Visit ___ Follow-up Visit ___ On-call Visit ___ General Patient Visit ___ Spiritual Assessment ___ Family Conference ___ Bereavement ___ Rapid Response ___ Code Blue ___ Other (describe below) Pastoral Care Referral From _x__ Patient ___ Family ___ Nurse ___ Physician ___ Wholesale Buyer ___ Telecom Coordinator ___ Other (describe below) Sacrament/Intervention _x__ Active listening ___ Anointing ___ Anglican _x__ Bereavement ___ Communion ___ Graciela exploration ___ ___ Life review _x__ Prayer ___ Reconciliation ___ Sacrament of Sick _x__ Supportive presence ___ Wedding ___ Other (describe below) Pastoral Comments patient has back pain/discomfort at this time as he lies flat following heart cath this morning; pt speaks of recent of and that maybe heart issues are really stress according to DR suggestion; pt states that the arteries are fine; discussion on taking care of self and where does he find his support; pt also open to prayer support
[2020-02-29] MEDS: Lisinopril 20 MG Tablet PO (12:53)
[2020-02-29] MEDS: Loratadine 10 MG Tablet PO (12:53)
[2020-02-29] MEDS: Escitalopram Oxalate 10 MG Tablet 20 MG PO (12:53)
[2020-02-29] MEDS: buPROPion (XL) 150 MG TABLET.XL PO (12:53)
[2020-02-29] MEDS: hydroCHLOROthiazide 12.5mg 12.5 MG PO (12:53)
[2020-02-29] MEDS: Pantoprazole Sodium 40 MG Tablet PO (12:53)
[2020-02-29] MEDS: Gabapentin 300 MG Capsule PO (12:56)
--- NOTE | 2020-02-29 15:15 | NURSING ---
Pt ambulated around room post bedrest and R groin and R wrist remained stable post cath.
== END 2020-02-29 12:22 | disposition home or self-care (01) ==
LOC: ED 07:29 → PCU 08:29
PROVIDERS: Internal Medicine Cardiovascular Disease; Nurse Practitioner Family; Admitting Provider Family Medicine; Emergency Provider Emergency Medicine; PCP Student in an Organized Health Care Education/Training Program; Visit Provider Family Medicine
DX: R07.89 Other chest pain (principal); R06.02 Shortness of breath; K21.9 Gastro-esophageal reflux disease without esophagitis; I10 Essential (primary) hypertension; G47.33 Obstructive sleep apnea (adult) (pediatric); E66.01 Morbid (severe) obesity due to excess calories; G89.29 Other chronic pain; F32.9 Major depressive disorder, single episode, unspecified; F17.220 Nicotine dependence, chewing tobacco, uncomplicated; R06.09 Other forms of dyspnea; F41.9 Anxiety disorder, unspecified; E11.9 Type 2 diabetes mellitus without complications; E78.5 Hyperlipidemia, unspecified; Z68.43 Body mass index [BMI] 50.0-59.9, adult; Z79.899 Other long term (current) drug therapy; Z79.82 Long term (current) use of aspirin
CPT/HCPCS: 36415; 71045; 71275; 80048; 80061; 81001; 82962; 83036; 83735; 84484; 85025; 85027; 85379; 85610; 87040; 87635; 93005; 93458; 96372; 99152; 99153; 99218; 99285; 99406; J7030; Q9967; A4216; C1769; C1894; G0378; U0003

== ENCOUNTER 2021-03-27 09:04 | Day surgery (SDC) | payer MEDICARE, SELFPAY ==
[2020-02-27 08:11] VITALS: BMI 50.0
[2021-03-20 14:03] LABS: Hemoglobin 13.4 g/dL (13.0-16.5); Mean Corp Hgb Conc 31.2 g/dL (32-36); Mean Corpuscular Hgb 28.1 pg (27.0-32.0); Mean Corpuscular Volume 90.1 fL (80-94); Mean Platelet Vol. 10.6 fl (6.2-12.0); Platelet Count 233 K/mm3 (150-450); RBC Distribution Width CV 14.9 % (11.6-14.6); RBC Distribution Width SD 48.7 fl (35.1-43.9); Red Blood Count 4.77 M/mm3 (4.6-6.2); White Blood Count 7.3 K/mm3 (4.4-11.0)
[2021-03-20 14:41] LABS: Hemoglobin A1c 5.5 % (3.8-5.6)
[2021-03-20 14:42] LABS: AST(SGOT) 19 U/L (15-37); Alanine Aminotransfer ALT/SGPT 23 U/L (16-61); Albumin, Serum 3.4 g/dL (3.2-5.0); Alkaline Phosphatase 71 U/L (45-117); Anion Gap 4 (5-15); BUN 19 mg/dL (7-18); BUN/Creat Ratio 17.3 RATIO (10-20); Calcium,Total 8.6 mg/dL (8.5-10.1); Chloride 105 mmol/L (98-107); EST Glomerular Filtration Rate 72 mL/min (>60); Est Glom Filt Rate - Afr Amer 87 mL/min (>60); Globulin 3.3 g/dL (2.2-4.2); Glucose 120 mg/dL (74-106); Potassium 4.4 mmol/L (3.5-5.1); Protein, Total 6.7 g/dL (6.4-8.2); Sodium Level 139 mmol/L (136-145)
[2021-03-27] MEDS: Lactated Ringers 1,000 ML 100 ML IV ×2 (09:40→12:42)
[2021-03-27 09:50] VITALS: BP 135/78; PULSE 52; RESP 18; TEMP 36.3; O2SAT 98; BMI 47.9
[2021-03-27] MEDS: Epinephrine (1 mg/ml) 1 MG/ML VIAL (11:39)
[2021-03-27] MEDS: Bupivacaine Mpf 0.5% 30 ML VIAL (11:40)
[2021-03-27 12:09] VITALS: BP 135/78; BP 136/88; PULSE 63; RESP 17; TEMP 35.8; O2SAT 100
[2021-03-27 12:15] VITALS: BP 134/80; BP 135/78; PULSE 51; RESP 18; O2SAT 99
[2021-03-27 12:30] VITALS: BP 116/84; BP 135/78; PULSE 59; RESP 18; O2SAT 97
[2021-03-27 12:46] VITALS: BP 127/77; BP 135/78; PULSE 51; RESP 18; TEMP 36.1; O2SAT 98
--- NOTE | 2021-03-27 12:49 | OP.PCM_ITS ---
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
[2021-03-27 13:51] VITALS: BP 135/78; PULSE 55; RESP 16; TEMP 36.3; O2SAT 97
== END 2021-03-27 13:55 ==
LOC: SDC 09:07 → AC 09:30
PROVIDERS: PCP Student in an Organized Health Care Education/Training Program; Referring Provider Orthopaedic Surgery; Visit Provider Orthopaedic Surgery
PROC: (CPT 29870; principal; 2021-03-27 10:25)
DX: S83.242A Other tear of medial meniscus, current injury, left knee, initial encounter (principal); M22.42 Chondromalacia patellae, left knee; X58.XXXA Exposure to other specified factors, initial encounter; Y93.9 Activity, unspecified; Y92.9 Unspecified place or not applicable; I10 Essential (primary) hypertension; F32.9 Major depressive disorder, single episode, unspecified; K21.9 Gastro-esophageal reflux disease without esophagitis; Z87.442 Personal history of urinary calculi; Z79.899 Other long term (current) drug therapy
CPT/HCPCS: 29881; 80053; 83036; 85027; 87426; C9803; J7120; J2405

== ENCOUNTER → 2021-05-31 15:22 | Outpatient (CLI) | payer MEDICARE, SELFPAY ==
[2021-05-31 16:10] LABS: Amphetamine Urine VISTA NEGATIVE (<1000 ng/mL); Barbiturate Urine VISTA NEGATIVE (< 200 ng/mL); Benzodiazepine Urine VISTA NEGATIVE (< 200 ng/mL); Cocaine Urine VISTA NEGATIVE (< 300 ng/mL); Ecstacy Urine VISTA POSITIVE (< 500 ng/mL); Methadone Urine VISTA NEGATIVE (< 300 ng/mL); PCP Urine VISTA NEGATIVE (< 25 ng/mL); THC Urine VISTA NEGATIVE (< 50 ng/mL); Vista UDS pH Range 5
== END ==
PROVIDERS: PCP Student in an Organized Health Care Education/Training Program; Referring Provider Anesthesiology Pain Medicine; Visit Provider Anesthesiology Pain Medicine
DX: F11.20 Opioid dependence, uncomplicated (principal)
CPT/HCPCS: 80307

== ENCOUNTER 2021-09-20 15:53 | Outpatient (CLI) | payer MEDICARE, SELFPAY ==
[2021-09-20 18:18] LABS: Amphetamine Urine VISTA NEGATIVE (<1000 ng/mL); Barbiturate Urine VISTA NEGATIVE (< 200 ng/mL); Benzodiazepine Urine VISTA NEGATIVE (< 200 ng/mL); Cocaine Urine VISTA NEGATIVE (< 300 ng/mL); Ecstacy Urine VISTA POSITIVE (< 500 ng/mL); Methadone Urine VISTA NEGATIVE (< 300 ng/mL); PCP Urine VISTA NEGATIVE (< 25 ng/mL); THC Urine VISTA NEGATIVE (< 50 ng/mL); Vista UDS pH Range 4
== END 2021-09-20 23:59 | disposition short-term general hospital (02) ==
LOC: LAB 15:55
PROVIDERS: PCP Student in an Organized Health Care Education/Training Program; Visit Provider Anesthesiology Pain Medicine
DX: F11.20 Opioid dependence, uncomplicated (principal)
CPT/HCPCS: 80307